=== PATIENT | male | born 1980 | race Two or more races ===

== ENCOUNTER 2016-12-30 12:04 | Inpatient (IN) | payer OTHER ==
[2016-12-30 13:59] VITALS: BMI 31.7
--- NOTE | 2016-12-30 19:39 | HP ---
Admission [facility] Chief Complaint: Seeking detox services. Allergies/Adverse Reactions: Allergies Allergy/AdvReac Type Severity Reaction Status Date / Time Penicillins Allergy Severe RASH Unverified 12/30/16 18:38 History of Present Illness: 36 y.o. man with a history of drug and alcohol dependence is here seeking detox. He completed detox at [facility] and was discharged today. He reports his longest period clean has been 4 years. - Ebola screening Have you traveled outside of the country in the last 21 days: No Have you had contact with anyone from an Ebola affected area: No Have you been sick,other than usual withdrawal symptoms: No - Review of Systems Constitutional: No Symptoms Reported EENT: reports: No Symptoms Reported Respiratory: reports: No Symptoms reported Cardiac: reports: No Symptoms Reported GI: reports: No Symptoms Reported : reports: No Symptoms Reported Musculoskeletal: reports: No Symptoms Reported Integumentary: reports: No Symptoms Reported Neuro: reports: No Symptoms reported Endocrine: reports: No Symptoms Reported Hematology: reports: No Symptoms Reported Psychiatric: reports: Orientated x3 Other Systems: Reviewed and Negative Patient History - Patient Medical History Hx Anemia: No Hx Asthma: No Hx Chronic Obstructive Pulmonary Disease (COPD): No Hx Cancer: No Hx Cardiac Disorders: No Hx Congestive Heart Failure: No Hx Hypertension: No Hx Hypercholesterolemia: No Hx Pacemaker: No HX Cerebrovascular Accident: No Hx Seizures: No Hx Dementia: No Hx Diabetes: No Hx Gastrointestinal Disorders: No Hx Liver Disease: No Hx Genitourinary Disorders: No Hx Sexually Transmitted Disorders: No Hx Renal Disease (ESRD): No Hx Thyroid Disease: No Hx Human Immunodeficiency Virus (HIV): No Hx Hepatitis C: No Hx Depression: Yes (Denies SI/HI) Hx Suicide Attempt: No Hx Bipolar Disorder: No Hx Schizophrenia: No - Patient Surgical History Past Surgical History: No Hx Neurologic Surgery: No Hx Cataract Extraction: No Hx Cardiac Surgery: No Hx Lung Surgery: No Hx Breast Surgery: No Hx Breast Biopsy: No Hx Abdominal Surgery: No Hx Appendectomy: No Hx Cholecystectomy: No Hx Genitourinary Surgery: No Hx Section: No Hx Orthopedic Surgery: No Anesthesia Reaction: No - PPD History Previous Implant?: Yes Documented Results: Negative w/o proof PPD to be Administered?: Yes - Reproductive History Patient is a Female of Child Bearing Age (11 -55 yrs old): No - Smoking Cessation Smoking history: Current every day smoker Have you smoked in the past 12 months: Yes Aproximately how many cigarettes per day: 3 Hx Chewing Tobacco Use: No Initiated information on smoking cessation: No 'Breaking Loose' booklet given: 12/30/16 - Substance & Tx. History Hx Alcohol Use: Yes Hx Substance Use: Yes Substance Use Type: Alcohol, Heroin Hx Substance Use Treatment: No (Detox @ [facility] d/ on 12/30/16. Last rehab was 8 years ago. ) - Substances Abused Alcohol Route: Oral Frequency: Daily Amount used: $20- beers- 6pk and lquor- 1 pint Age of first use: 17 Date of Last Use: 12/23/16 Heroin Route: Injection Frequency: Daily Amount used: 4bags- $40 Age of first use: 23 Date of Last Use: 12/25/16 PCP Route: Smoking Frequency: 1-2 times per week Amount used: $10 Age of first use: 25 Date of Last Use: 12/10/16 Family Disease History - Family Disease History Family Disease History: Other: Father (ETOH dependence ) Admission Physical Exam [facility] - Vital Signs Vital Signs: Vital Signs - 24 hr 12/30/16 13:57 Temperature 97.7 F Pulse Rate 110 H Respiratory 18 Rate Blood Pressure 152/75 - Physical General Appearance: Yes: No Apparent Distress, Nourished, Appropriately Dressed HEENTM: Yes: Hearing grossly Normal, Normal ENT Inspection, Normocephalic, Normal Voice Respiratory: Yes: Chest Non-Tender, Lungs Clear, Normal Breath Sounds, No Respiratory Distress, No Accessory Muscle Use Neck: Yes: No masses,lesions,Nodules, Trachea in good position Breast: Yes: Breast Exam Deferred Cardiology: Yes: Regular Rhythm Abdominal: Yes: Normal Bowel Sounds, Non Tender, Flat, Soft Genitourinary: Yes: Other (No complaints reported) Back: Yes: Normal Inspection Musculoskeletal: Yes: full range of Motion, Gait Steady, Pelvis Stable Extremities: Yes: Normal Capillary Refill, Normal Inspection, Normal Range of Motion, Non-Tender 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, Fully Oriented, Alert, Motor Strength 5/5, Normal Mood/Affect, Normal Response Integumentary: Yes: Normal Color, Dry, Warm Lymphatic: Yes: Within Normal Limits - Diagnostic (1) Alcohol dependence with uncomplicated withdrawal Current Visit: Yes Status: Chronic (2) Opioid dependence with withdrawal Current Visit: Yes Status: Chronic (3) Nicotine dependence Current Visit: Yes Status: Chronic (4) PCP dependence Current Visit: Yes Status: Chronic Cleared for Admission [facility] - Detox or Rehab [facility] Level of Care: Observation Bed Claeared for Rehab Admission: Yes [facility] Breath Alcohol Content Breath Alcohol Content: 0 Urine Drug Screen - Results Drug Screen Negative: No Urine Drug Screen Results: PCP-Phencyclidine, BZO-Benzodiazepines, MTD-Methadone
[2016-12-30] MEDS ORDERED: MENTHOL/PHENOL 1 EACH UD MM PRN (19:54)
[2016-12-30] MEDS ORDERED: IBUPROFEN 400 MG TABLET (FP) PO PRN (19:54)
[2016-12-30] MEDS ORDERED: guaiFENesin/D-METHORPHAN HB 10 ML UNIT-DOSE CUPS PO PRN (19:54)
[2016-12-30] MEDS ORDERED: hydrOXYzine PAMOATE 50 MG CAPSULE (FP) PO PRN (19:54)
[2016-12-30] MEDS ORDERED: LOPERAMIDE HCL 2 MG CAPSULE PO PRN (19:54)
[2016-12-30] MEDS ORDERED: ACETAMINOPHEN 325 MG TABLET (FP) PO PRN (19:54)
[2016-12-30] MEDS ORDERED: MAGNESIUM CITRATE 300 ML BOTTLE PO PRN (19:54)
[2016-12-30] MEDS ORDERED: MAG HYDROX/AL HYDROX/SIMETH 30 ML UNIT-DOSE CUP PO PRN (19:54)
[2016-12-30] MEDS ORDERED: MAGNESIUM HYDROX 2400MG/30ML ORAL SUSPENSION 30 ML CUP PO PRN (19:54)
[2016-12-30] MEDS ORDERED: P-EPHED 60MG/TRIPROLIDI 2.5MG TABLET PO PRN (19:54)
[2016-12-30] MEDS: diphenhydrAMINE HCL 50 MG CAPSULE PO PRN (21:58)
[2016-12-30] MEDS: THIAMINE HCL 100 MG TABLET (FP) PO SCH (21:58)
[2016-12-30 23:04] LABS: URINE APPEARANCE CLEAR; URINE BILIRUBIN NEGATIVE (NEGATIVE); URINE BLOOD NEGATIVE (NEGATIVE); URINE COLOR LTYELLOW; URINE GLUCOSE (UA) NEGATIVE (NEGATIVE); URINE KETONE NEGATIVE (NEGATIVE); URINE LEUK ESTERASE NEGATIVE (NEGATIVE); URINE NITRITE NEGATIVE (NEGATIVE); URINE PROTEIN NEGATIVE (NEGATIVE); URINE UROBILINOGEN NEGATIVE mg/dL (0.2-1.0)
--- NOTE | 2016-12-31 09:23 | EKG ---
Test Reason : Blood Pressure : / mmHG Vent. Rate : 095 BPM Atrial Rate : 095 BPM P-R Int : 142 ms QRS Dur : 088 ms QT Int : 358 ms P-R-T Axes : 061 065 041 degrees QTc Int : 449 ms NORMAL SINUS RHYTHM NORMAL ECG NO PREVIOUS ECGS AVAILABLE Confirmed by CATA GRACIA MD ([id number]) on 12/31/2016 9:23:11 AM Referred By: Confirmed By:CATA GRACIA MD
--- NOTE | 2016-12-31 09:27 | HP ---
Psychiatrist Admission - Data Date of interview: 12/31/16 Admission source: [facility] Identifying data: This is the first 5n inpatient rehabilitation admission for this 36 year old single male, father of 3 year old son, he is unemployed and residing in friends [place] apartment. Medical History: Reports no major medical issues, smokes cigarettes 3 a day. Psychiatric History: Patient reports first psychiatric treatment at age of 16, states he started to hear voices and feeling depressed following the of his mother, he was dmitted to [facility] for one [facility], treated with Depakote, Risperdal,Seroquel,Remeron he continued treatment in outpatient setting. States was diagnosed with Bipolar disorder. He stopped medications "because I was using ". States he hears voices on and off, last time heard them a months ago, states the voices(male and female) telling him "you gonna be a star". Patient reports he has difficutly sleeping , his mood is different during the day, it might be iiritable, depressed. Denies history of suicidal attempts. Physical/Sexual Abuse/Trauma History: Denies history of sexual, physical and verbal abuse. Additional Comment: Longest period of abstinence 4 years Vital Signs: Vital Signs - 24 hr 12/30/16 12/31/16 12/31/16 13:57 00:41 03:30 Temperature 97.7 F Pulse Rate 110 H Respiratory 18 18 18 Rate Blood Pressure 152/75 Allergies/Adverse Reactions: Allergies Allergy/AdvReac Type Severity Reaction Status Date / Time Penicillins Allergy Severe RASH Verified 12/30/16 20:52 Date of last physical exam: 12/30/16 Concur with the findings of this exam: Yes - Substance Abuse/Tx History Hx Alcohol Use: Yes (started at age of 18, reports daily use of beer, liquor) Hx Substance Use: Yes (PCP use 1-2 times a week for $10 ) Substance Use Type: Heroin (IV daily use 4-5 bags a day, started at age of 89) Hx Substance Use Treatment: Yes ([facility] rehab.) - Admission Criteria Previous failed treatment: Yes Poor recovery environment: Yes Comorbidities: Yes Lacks judgement: Yes Mental Status Exam - Mental Status Exam Alert and Oriented to: Time, Place, Person Cognitive Function: Good Patient Appearance: Well Groomed Mood: Depressed, Sad Affect: Appropriate, Mood Congruent, Constricted Patient Behavior: Appropriate, Cooperative Voice Loudness: Normal Thought Process: Goal Oriented Thought Disorder: Not Present Hallucinations: Denies Homicidal Ideation: Denies Insight/Judgement: Fair Sleep: Poorly, Difficulty falling asleep Appetite: Fair Muscle strength/Tone: Normal Gait/Station: Normal Psychiatric Findings - Problem List ([place] 1, 2,3) (1) Nicotine dependence Current Visit: Yes Status: Chronic (2) PCP dependence Current Visit: Yes Status: Chronic (3) Opioid dependence Current Visit: Yes Status: Acute (4) Alcohol dependence Current Visit: Yes Status: Acute (5) Bipolar 1 disorder, depressed Current Visit: Yes Status: Acute - Initial Treatment Plan Initial Treatment Plan: Will add Seroquel 50 mg po hs, monitor progress as needed.
[2016-12-31 10:16] LABS: MCH 27.4 pg (25.7-33.7); MCHC 33.3 g/dl (32.0-35.9); MEAN CELL VOLUME 82.4 fl (80-96); PLATELET COUNT 245 K/MM3 (134-434); RDW 13.6 % (11.9-15.9); WHITE BLOOD COUNT 8.9 K/mm3 (4.0-10.0)
[2016-12-31 10:22] LABS: ALBUMIN 3.5 g/dl (3.4-5.0); ANION GAP 8 (8-16); CALCIUM 8.6 mg/dL (8.5-10.1); CO2 29 mmol/L (21-32); GLUCOSE,RANDOM 93 mg/dL (74-106)
[2016-12-31] MEDS: PRENATAL VITAMINS W/ FOLIC ACID TABLET (FP) PO SCH (10:22)
[2016-12-31] MEDS: NICOTINE 21 MG/24 HOURS TOPICAL PATCH TD SCH (10:22)
[2016-12-31] MEDS: NICOTINE POLACRILEX 2 MG GUM BUC PRN (10:22)
[2016-12-31 10:27] LABS: ALK PHOS 90 U/L (45-117); BILIRUBIN,TOTAL 0.5 mg/dL (0.2-1.0); CREATININE 0.8 mg/dL (0.7-1.3); SGOT/AST 16 U/L (15-37); SGPT/ALT 21 U/L (12-78); TOT PROT 6.5 g/dl (6.4-8.2)
[2016-12-31] MEDS: THIAMINE HCL 100 MG TABLET (FP) PO SCH (23:16)
[2016-12-31] MEDS: QUEtiapine FUMARATE 50 MG TABLET PO SCH (23:16)
[2017-01-01] MEDS: PRENATAL VITAMINS W/ FOLIC ACID TABLET (FP) PO SCH (10:06)
[2017-01-01] MEDS: NICOTINE 21 MG/24 HOURS TOPICAL PATCH TD SCH (10:06)
[2017-01-01] MEDS: NICOTINE POLACRILEX 2 MG GUM BUC PRN (18:20)
[2017-01-01] MEDS: THIAMINE HCL 100 MG TABLET (FP) PO SCH (21:40)
[2017-01-01] MEDS: QUEtiapine FUMARATE 50 MG TABLET PO SCH (21:40)
[2017-01-02] MEDS: NICOTINE 21 MG/24 HOURS TOPICAL PATCH TD SCH (10:12)
[2017-01-02] MEDS: PRENATAL VITAMINS W/ FOLIC ACID TABLET (FP) PO SCH (10:12)
[2017-01-02] MEDS: THIAMINE HCL 100 MG TABLET (FP) PO SCH (21:40)
[2017-01-02] MEDS: QUEtiapine FUMARATE 50 MG TABLET PO SCH (21:40)
[2017-01-02] MEDS: NICOTINE POLACRILEX 2 MG GUM BUC PRN (21:41)
[2017-01-03] MEDS: NICOTINE POLACRILEX 2 MG GUM BUC PRN ×2 (06:23→10:14)
[2017-01-03] MEDS: PRENATAL VITAMINS W/ FOLIC ACID TABLET (FP) PO SCH (10:13)
[2017-01-03] MEDS: NICOTINE 21 MG/24 HOURS TOPICAL PATCH TD SCH (10:13)
[2017-01-03] MEDS: QUEtiapine FUMARATE 50 MG TABLET PO SCH (21:35)
[2017-01-03] MEDS: THIAMINE HCL 100 MG TABLET (FP) PO SCH (21:35)
[2017-01-04] MEDS: PRENATAL VITAMINS W/ FOLIC ACID TABLET (FP) PO SCH (10:58)
[2017-01-04] MEDS: NICOTINE POLACRILEX 2 MG GUM BUC PRN ×2 (10:59→21:50)
[2017-01-04] MEDS: NICOTINE 21 MG/24 HOURS TOPICAL PATCH TD SCH (10:59)
[2017-01-04] MEDS: QUEtiapine FUMARATE 50 MG TABLET PO SCH (21:49)
[2017-01-04] MEDS: THIAMINE HCL 100 MG TABLET (FP) PO SCH (21:49)
[2017-01-05] MEDS: PRENATAL VITAMINS W/ FOLIC ACID TABLET (FP) PO SCH (10:13)
[2017-01-05] MEDS: NICOTINE 21 MG/24 HOURS TOPICAL PATCH TD SCH (10:13)
[2017-01-05] MEDS: NICOTINE POLACRILEX 2 MG GUM BUC PRN ×2 (10:14→21:42)
[2017-01-05] MEDS: THIAMINE HCL 100 MG TABLET (FP) PO SCH (21:40)
[2017-01-05] MEDS: QUEtiapine FUMARATE 50 MG TABLET PO SCH (21:40)
--- NOTE | 2017-01-06 09:51 | PN ---
Psychiatric Progress Note Vital Signs: Vital Signs Period Temp Pulse Resp BP Sys/Gamez Pulse Ox Last 24 Hr 98.2 F 78 16-18 112/67 Current Medications: Active Medications Generic Name Dose Route Start Last Admin Trade Name Freq PRN Reason Stop Dose Admin Acetaminophen 650 mg 12/30/16 19:54 12/31/16 01:03 Tylenol - PO 650 mg Q4H PRN Administration PAIN Al Hydroxide/Mg Hydroxide 30 ml 12/30/16 19:54 Mylanta Oral Suspension - PO Q6H PRN DYSPEPSIA Diphenhydramine HCl 50 mg 12/30/16 19:54 12/30/16 21:58 Benadryl - PO 50 mg HSMR1 PRN Administration INSOMNIA Eucalyptus/Menthol/Phenol/Sorbitol 1 each 12/30/16 19:54 Cepastat Lozenge - MM Q4H PRN SORE THROAT Guaifenesin 10 ml 12/30/16 19:54 Robitussin Dm - PO Q6H PRN COUGH Hydroxyzine Pamoate 50 mg 12/30/16 19:54 Vistaril - PO Q4H PRN AGITATION Ibuprofen 400 mg 12/30/16 19:54 Motrin - PO Q6H PRN SEVERE PAIN Loperamide HCl 4 mg 12/30/16 19:54 Imodium - PO Q6H PRN DIARRHEA Magnesium Citrate 300 ml 12/30/16 19:54 Citroma - PO Q48H PRN CONSTIPATION Magnesium Hydroxide 30 ml 12/30/16 19:54 Milk Of Magnesia - PO DAILY PRN CONSTIPATION Nicotine 21 mg 12/31/16 10:00 01/05/17 10:13 Nicoderm Patch - TD Not Given DAILY MAKAYLA Nicotine Polacrilex 2 mg 12/30/16 19:54 01/05/17 21:42 Nicorette Gum - BUC 2 mg Q2H PRN Administration NICOTINE REPLACEMENT RX Multivit/Folic Acid/Iron 1 tab 12/31/16 10:00 01/05/17 10:13 Vitamins (Sjr) - PO 1 tab DAILY MAKAYLA Administration Pseudoephedrine/Triprolidine 1 combo 12/30/16 19:54 Actifed - PO TID PRN NASAL CONGESTION Quetiapine Fumarate 50 mg 12/31/16 22:00 01/05/17 21:40 Seroquel - PO 50 mg HS MAKAYLA Administration Thiamine HCl 100 mg 12/30/16 22:00 01/05/17 21:40 Vitamin B1 - PO 100 mg HS MAKAYLA Administration
[2017-01-06] MEDS: NICOTINE 21 MG/24 HOURS TOPICAL PATCH TD SCH (10:19)
[2017-01-06] MEDS: PRENATAL VITAMINS W/ FOLIC ACID TABLET (FP) PO SCH (10:19)
[2017-01-06] MEDS: QUEtiapine FUMARATE 50 MG TABLET PO SCH (21:39)
[2017-01-06] MEDS: THIAMINE HCL 100 MG TABLET (FP) PO SCH (21:39)
[2017-01-07] MEDS: NICOTINE 21 MG/24 HOURS TOPICAL PATCH TD SCH (09:59)
[2017-01-07] MEDS: PRENATAL VITAMINS W/ FOLIC ACID TABLET (FP) PO SCH (09:59)
[2017-01-07] MEDS: NICOTINE POLACRILEX 2 MG GUM BUC PRN (10:42)
[2017-01-07] MEDS: QUEtiapine FUMARATE 50 MG TABLET PO SCH (21:46)
[2017-01-07] MEDS: THIAMINE HCL 100 MG TABLET (FP) PO SCH (21:46)
[2017-01-08] MEDS: NICOTINE 21 MG/24 HOURS TOPICAL PATCH TD SCH (10:18)
[2017-01-08] MEDS: PRENATAL VITAMINS W/ FOLIC ACID TABLET (FP) PO SCH (10:18)
[2017-01-08] MEDS: THIAMINE HCL 100 MG TABLET (FP) PO SCH (22:32)
[2017-01-08] MEDS: QUEtiapine FUMARATE 50 MG TABLET PO SCH (22:32)
[2017-01-09] MEDS: PRENATAL VITAMINS W/ FOLIC ACID TABLET (FP) PO SCH (10:41)
[2017-01-09] MEDS: NICOTINE 21 MG/24 HOURS TOPICAL PATCH TD SCH (10:41)
[2017-01-09] MEDS: THIAMINE HCL 100 MG TABLET (FP) PO SCH (21:35)
[2017-01-09] MEDS: QUEtiapine FUMARATE 50 MG TABLET PO SCH (21:35)
[2017-01-10] MEDS: PRENATAL VITAMINS W/ FOLIC ACID TABLET (FP) PO SCH (10:24)
[2017-01-10] MEDS: NICOTINE 21 MG/24 HOURS TOPICAL PATCH TD SCH (10:24)
[2017-01-10] MEDS: THIAMINE HCL 100 MG TABLET (FP) PO SCH (21:33)
[2017-01-10] MEDS: QUEtiapine FUMARATE 50 MG TABLET PO SCH (21:33)
[2017-01-11] MEDS: NICOTINE 21 MG/24 HOURS TOPICAL PATCH TD SCH (10:27)
[2017-01-11] MEDS: PRENATAL VITAMINS W/ FOLIC ACID TABLET (FP) PO SCH (10:27)
[2017-01-11] MEDS: QUEtiapine FUMARATE 50 MG TABLET PO SCH (21:34)
[2017-01-11] MEDS: THIAMINE HCL 100 MG TABLET (FP) PO SCH (21:34)
[2017-01-12] MEDS: PRENATAL VITAMINS W/ FOLIC ACID TABLET (FP) PO SCH (10:49)
[2017-01-12] MEDS: NICOTINE 21 MG/24 HOURS TOPICAL PATCH TD SCH (10:50)
[2017-01-12] MEDS: QUEtiapine FUMARATE 50 MG TABLET PO SCH (21:44)
[2017-01-12] MEDS: THIAMINE HCL 100 MG TABLET (FP) PO SCH (21:44)
[2017-01-13] MEDS: NICOTINE 21 MG/24 HOURS TOPICAL PATCH TD SCH (10:47)
[2017-01-13] MEDS: PRENATAL VITAMINS W/ FOLIC ACID TABLET (FP) PO SCH (10:47)
[2017-01-13] MEDS: QUEtiapine FUMARATE 50 MG TABLET PO SCH (21:34)
[2017-01-13] MEDS: THIAMINE HCL 100 MG TABLET (FP) PO SCH (21:34)
[2017-01-14] MEDS: PRENATAL VITAMINS W/ FOLIC ACID TABLET (FP) PO SCH (10:01)
[2017-01-14] MEDS: NICOTINE 21 MG/24 HOURS TOPICAL PATCH TD SCH (10:01)
[2017-01-14] MEDS: QUEtiapine FUMARATE 50 MG TABLET PO SCH (21:37)
[2017-01-14] MEDS: THIAMINE HCL 100 MG TABLET (FP) PO SCH (21:37)
[2017-01-15] MEDS: NICOTINE 21 MG/24 HOURS TOPICAL PATCH TD SCH (10:28)
[2017-01-15] MEDS: PRENATAL VITAMINS W/ FOLIC ACID TABLET (FP) PO SCH (10:28)
[2017-01-15] MEDS: QUEtiapine FUMARATE 50 MG TABLET PO SCH (21:37)
[2017-01-15] MEDS: THIAMINE HCL 100 MG TABLET (FP) PO SCH (21:37)
[2017-01-16] MEDS: NICOTINE 21 MG/24 HOURS TOPICAL PATCH TD SCH (10:22)
[2017-01-16] MEDS: PRENATAL VITAMINS W/ FOLIC ACID TABLET (FP) PO SCH (10:22)
[2017-01-16] MEDS: QUEtiapine FUMARATE 50 MG TABLET PO SCH (21:33)
[2017-01-16] MEDS: NICOTINE POLACRILEX 2 MG GUM BUC PRN (21:34)
[2017-01-16] MEDS: THIAMINE HCL 100 MG TABLET (FP) PO SCH (21:34)
[2017-01-17] MEDS: NICOTINE 21 MG/24 HOURS TOPICAL PATCH TD SCH (10:37)
[2017-01-17] MEDS: PRENATAL VITAMINS W/ FOLIC ACID TABLET (FP) PO SCH (10:38)
[2017-01-17] MEDS: QUEtiapine FUMARATE 50 MG TABLET PO SCH (21:52)
[2017-01-17] MEDS: THIAMINE HCL 100 MG TABLET (FP) PO SCH (21:52)
[2017-01-17] MEDS: diphenhydrAMINE HCL 50 MG CAPSULE PO PRN (21:53)
[2017-01-18] MEDS: NICOTINE 21 MG/24 HOURS TOPICAL PATCH TD SCH (10:42)
[2017-01-18] MEDS: PRENATAL VITAMINS W/ FOLIC ACID TABLET (FP) PO SCH (10:42)
[2017-01-18] MEDS: QUEtiapine FUMARATE 50 MG TABLET PO SCH (21:52)
[2017-01-18] MEDS: THIAMINE HCL 100 MG TABLET (FP) PO SCH (21:52)
[2017-01-18] MEDS: diphenhydrAMINE HCL 50 MG CAPSULE PO PRN (21:53)
[2017-01-19] MEDS: PRENATAL VITAMINS W/ FOLIC ACID TABLET (FP) PO SCH (10:24)
[2017-01-19] MEDS: NICOTINE 21 MG/24 HOURS TOPICAL PATCH TD SCH (10:24)
[2017-01-19] MEDS: THIAMINE HCL 100 MG TABLET (FP) PO SCH (21:50)
[2017-01-19] MEDS: QUEtiapine FUMARATE 50 MG TABLET PO SCH (21:50)
[2017-01-20] MEDS: PRENATAL VITAMINS W/ FOLIC ACID TABLET (FP) PO SCH (10:57)
[2017-01-20] MEDS: NICOTINE 21 MG/24 HOURS TOPICAL PATCH TD SCH (10:57)
[2017-01-20] MEDS: QUEtiapine FUMARATE 50 MG TABLET PO SCH (21:26)
[2017-01-20] MEDS: THIAMINE HCL 100 MG TABLET (FP) PO SCH (21:26)
[2017-01-21] MEDS: NICOTINE 21 MG/24 HOURS TOPICAL PATCH TD SCH (10:47)
[2017-01-21] MEDS: PRENATAL VITAMINS W/ FOLIC ACID TABLET (FP) PO SCH (10:47)
--- NOTE | 2017-01-21 12:10 | PN ---
[facility] Progress Note Note: patient has history of hepatitis c treated with harvoni 8 months ago by his pmd, advise follow up with his pmd after discharge
[2017-01-21] MEDS: QUEtiapine FUMARATE 50 MG TABLET PO SCH (21:38)
[2017-01-21] MEDS: THIAMINE HCL 100 MG TABLET (FP) PO SCH (21:39)
[2017-01-22] MEDS: PRENATAL VITAMINS W/ FOLIC ACID TABLET (FP) PO SCH (10:39)
[2017-01-22] MEDS: NICOTINE 21 MG/24 HOURS TOPICAL PATCH TD SCH (10:39)
[2017-01-22] MEDS: diphenhydrAMINE HCL 50 MG CAPSULE PO PRN (21:24)
[2017-01-22] MEDS: QUEtiapine FUMARATE 50 MG TABLET PO SCH (21:24)
[2017-01-22] MEDS: THIAMINE HCL 100 MG TABLET (FP) PO SCH (21:24)
[2017-01-23] MEDS: NICOTINE 21 MG/24 HOURS TOPICAL PATCH TD SCH (10:47)
[2017-01-23] MEDS: PRENATAL VITAMINS W/ FOLIC ACID TABLET (FP) PO SCH (10:47)
[2017-01-23] MEDS: QUEtiapine FUMARATE 50 MG TABLET PO SCH (21:26)
[2017-01-23] MEDS: diphenhydrAMINE HCL 50 MG CAPSULE PO PRN (21:26)
[2017-01-23] MEDS: THIAMINE HCL 100 MG TABLET (FP) PO SCH (21:26)
[2017-01-24 07:12] VITALS: BP 113/76; PULSE 90; TEMP 98.1
[2017-01-24] MEDS: NICOTINE 21 MG/24 HOURS TOPICAL PATCH TD SCH (10:38)
[2017-01-24] MEDS: PRENATAL VITAMINS W/ FOLIC ACID TABLET (FP) PO SCH (10:39)
[2017-01-24] MEDS: diphenhydrAMINE HCL 50 MG CAPSULE PO PRN (21:50)
[2017-01-24] MEDS: THIAMINE HCL 100 MG TABLET (FP) PO SCH (21:50)
[2017-01-24] MEDS: QUEtiapine FUMARATE 50 MG TABLET PO SCH (21:50)
--- NOTE | 2017-01-25 09:33 | PN ---
Psychiatric Progress Note Vital Signs: Vital Signs Period Temp Pulse Resp BP Sys/Gamez Pulse Ox Last 24 Hr 16-16 Date of Session: 01/25/17 Chief Complaint:: discharge visit HPI: Patient has addressed alcohol, opioid, PCP, nicotine dependence comorbid Bipolar disorder. ROS: WNL Current Medications: Active Medications Generic Name Dose Route Start Last Admin Trade Name Freq PRN Reason Stop Dose Admin Acetaminophen 650 mg 12/30/16 19:54 12/31/16 01:03 Tylenol - PO 650 mg Q4H PRN Administration PAIN Al Hydroxide/Mg Hydroxide 30 ml 12/30/16 19:54 Mylanta Oral Suspension - PO Q6H PRN DYSPEPSIA Diphenhydramine HCl 50 mg 12/30/16 19:54 01/24/17 21:50 Benadryl - PO 50 mg HSMR1 PRN Administration INSOMNIA Eucalyptus/Menthol/Phenol/Sorbitol 1 each 12/30/16 19:54 Cepastat Lozenge - MM Q4H PRN SORE THROAT Guaifenesin 10 ml 12/30/16 19:54 Robitussin Dm - PO Q6H PRN COUGH Hydroxyzine Pamoate 50 mg 12/30/16 19:54 Vistaril - PO Q4H PRN AGITATION Ibuprofen 400 mg 12/30/16 19:54 Motrin - PO Q6H PRN SEVERE PAIN Loperamide HCl 4 mg 12/30/16 19:54 Imodium - PO Q6H PRN DIARRHEA Magnesium Citrate 300 ml 12/30/16 19:54 Citroma - PO Q48H PRN CONSTIPATION Magnesium Hydroxide 30 ml 12/30/16 19:54 Milk Of Magnesia - PO DAILY PRN CONSTIPATION Nicotine 21 mg 12/31/16 10:00 01/24/17 10:38 Nicoderm Patch - TD Not Given DAILY MAKAYLA Nicotine Polacrilex 2 mg 12/30/16 19:54 01/16/17 21:34 Nicorette Gum - BUC 2 mg Q2H PRN Administration NICOTINE REPLACEMENT RX Multivit/Folic Acid/Iron 1 tab 12/31/16 10:00 01/24/17 10:39 Vitamins (Sjr) - PO Not Given DAILY MAKAYLA Pseudoephedrine/Triprolidine 1 combo 12/30/16 19:54 Actifed - PO TID PRN NASAL CONGESTION Quetiapine Fumarate 50 mg 12/31/16 22:00 01/24/17 21:50 Seroquel - PO 50 mg HS MAKAYLA Administration Thiamine HCl 100 mg 12/30/16 22:00 01/24/17 21:50 Vitamin B1 - PO 100 mg HS MAKAYLA Administration Current Side Effect: No Lab tests ordered: No Lab tests reviewed: Yes Provider note:: Patient has compelted today his treatment and met his identified goals, will contintue address his issiues at [facility]. He focused on imprtance of changing relapses, behavior for the utilization of supports to prevent, he verbalized understanding the negative consequences of his addiction and motivated to continue maintain abstinence. Seroquel well tolerated, no side-effects reported, scripts provided for 30 days, patient is stable for discharge today. Total face to face time:: 15 Mental Status Exam - Mental Status Exam Alert and Oriented to: Time, Place, Person Cognitive Function: Grossly Intact Patient Appearance: Well Groomed Mood: Hopeful Affect: Appropriate, Inappropriate, Mood Congruent Patient Behavior: Appropriate, Cooperative Speech Pattern: Clear, Appropriate Voice Loudness: Normal Thought Process: Intact, Goal Oriented Thought Disorder: Not Present Hallucinations: Denies Suicidal Ideation: Denies Homicidal Ideation: Denies Insight/Judgement: Fair Sleep: Well Appetite: Good Muscle strength/Tone: Normal Gait/Station: Normal Psychiatric Treatment Plan - Problem List (1) Nicotine dependence Current Visit: Yes (2) PCP dependence Current Visit: Yes (3) Opioid dependence Current Visit: Yes (4) Alcohol dependence Current Visit: Yes (5) Bipolar 1 disorder, depressed Current Visit: Yes
[2017-01-25] MEDS: NICOTINE 21 MG/24 HOURS TOPICAL PATCH TD SCH (10:09)
[2017-01-25] MEDS: PRENATAL VITAMINS W/ FOLIC ACID TABLET (FP) PO SCH (10:09)
== END 2017-01-25 10:00 | disposition home or self-care (01) | DRG 772 ==
LOC: YASAS 12:04 → Y5N 17:39
PROVIDERS: ADMIT Psychiatry & Neurology Psychiatry; ATTEND Psychiatry & Neurology Psychiatry
PROC: HZ42ZZZ Group Counseling for Substance Abuse Treatment, Cognitive-Behavioral (ICD-10-PCS; principal; 2017-01-25)
DX: F11.20 Opioid dependence, uncomplicated (principal); F10.20 Alcohol dependence, uncomplicated; F16.20 Hallucinogen dependence, uncomplicated; F17.210 Nicotine dependence, cigarettes, uncomplicated; F31.89 Other bipolar disorder
CPT/HCPCS: 36415; 80053; 81003; 85027; 86593; 86803; 93005; 93010

== ENCOUNTER 2018-03-05 08:58 | Inpatient (IN) | payer OTHER ==
[2018-03-05 09:16] VITALS: BMI 27.8
--- NOTE | 2018-03-05 09:27 | HP ---
CIWA Score - CIWA Score Nausea/Vomitin Muscle Tremors: 3 Anxiety: 2 Agitation: 2 Paroxysmal Sweats: 1-Minimal Palms Moist Orientation: 0-Oriented Tacttile Disturbances: 1-Very Mild Itch/Numbness Auditory Disturbances: 1-Very Mild Visual Disturbances: 0-None Headache: 2-Mild CIWA-Ar Total Score: 14 Admission ROS [facility] - HPI Chief Complaint: i need help to stop drinking alcohol,cocaine,pcp,heroin abused,mmtp 50 mgs/day last medicated today Allergies/Adverse Reactions: Allergies Allergy/AdvReac Type Severity Reaction Status Date / Time Penicillins Allergy Severe RASH Verified 03/05/18 09:15 History of Present Illness: this 37 years old male with alcohol ,cocaine,marijuana ,heroin dependence,mmtp 50 mgs/day,last medicated today hepatitis c teated 3 years ago bipolar disorder on medication nicotine dependence multiple admissions in the past but keep relapsing longest period of sobriety 5 years weight loss , Exam Limitations: No Limitations - Ebola screening Have you traveled outside of the country in the last 21 days: No - Review of Systems Constitutional: Loss of Appetite, Malaise, Night Sweats, Changes in sleep, Weakness, Unintentional Wgt. Loss EENT: reports: Nose Congestion Respiratory: reports: No Symptoms reported Cardiac: reports: No Symptoms Reported GI: reports: Nausea, Vomiting, Abdominal cramping : reports: No Symptoms Reported Musculoskeletal: reports: Back Pain, Muscle Pain Neuro: reports: Headache, Tremors Endocrine: reports: No Symptoms Reported Hematology: reports: No Symptoms Reported Psychiatric: reports: No Sypmtoms Reported (bipolar disorder), Judgement Intact , Mood/Affect Appropiate, Orientated x3 Patient History - Patient Medical History Hx Anemia: No Hx Asthma: No Hx Chronic Obstructive Pulmonary Disease (COPD): No Hx Cancer: No Hx Cardiac Disorders: No Hx Congestive Heart Failure: No Hx Hypertension: No Hx Hypercholesterolemia: No Hx Pacemaker: No HX Cerebrovascular Accident: No Hx Seizures: No Hx Dementia: No Hx Diabetes: No Hx Gastrointestinal Disorders: No Hx Liver Disease: No Hx Genitourinary Disorders: No Hx Sexually Transmitted Disorders: No Hx Renal Disease (ESRD): No Hx Thyroid Disease: No Hx Human Immunodeficiency Virus (HIV): No (03/02/18 negative) Hx Hepatitis C: Yes (treated 3 years ago) Hx Depression: Yes (Denies SI/HI) Hx Suicide Attempt: No Hx Bipolar Disorder: Yes Hx Schizophrenia: No Other Medical History: no suicidal,no homicidal - Patient Surgical History Past Surgical History: No Hx Neurologic Surgery: No Hx Cataract Extraction: No Hx Cardiac Surgery: No Hx Lung Surgery: No Hx Breast Surgery: No Hx Breast Biopsy: No Hx Abdominal Surgery: Yes (right inguinal hernia repair at age 29 years) Hx Appendectomy: No Hx Cholecystectomy: No Hx Genitourinary Surgery: No Hx Section: No Hx Orthopedic Surgery: No Anesthesia Reaction: No - PPD History Previous Implant?: Yes Documented Results: Negative w/o proof Implanted On [facility] Admission?: Yes Date: 01/01/17 Results: 0 mm PPD to be Administered?: Yes - Smoking Cessation Smoking history: Current every day smoker Have you smoked in the past 12 months: Yes Aproximately how many cigarettes per day: 3 Hx Chewing Tobacco Use: No Initiated information on smoking cessation: Yes 'Breaking Loose' booklet given: 03/05/18 - Substance & Tx. History Hx Alcohol Use: Yes Substance Use Type: Alcohol, Cocaine, Heroin, Marijuana Hx Substance Use Treatment: Yes ([facility] rehab12/30/16 to 01/23/17) - Substances Abused Alcohol Route: Oral Frequency: Daily Amount used: 5 40 OUNCES OF BEER Age of first use: 16 Date of Last Use: 03/04/18 Heroin Route: Inhalation Frequency: 1-2 times per week Amount used: 2-3 BAGS WHEN USED Age of first use: 26 Date of Last Use: 03/03/18 Marijuana/Hashish Route: Smoking Frequency: 1-3 times last 30 days Amount used: 1 BLUNT Age of first use: 16 Date of Last Use: 03/04/18 Cocaine Route: Inhalation Frequency: 1-2 times per week Amount used: 2 BAGS Age of first use: 28 Date of Last Use: 03/03/18 PCP Route: Smoking Frequency: 1-2 times per week Amount used: $30 Age of first use: 23 Date of Last Use: 03/04/18 Family Disease History - Family Disease History Family Disease History: Other: Father (ETOH dependence ) Admission Physical Exam [facility] - Vital Signs Vital Signs: Vital Signs Temperature 99.2 F 03/05/18 09:10 Pulse Rate 83 03/05/18 09:10 Respiratory Rate 18 03/05/18 09:10 Blood Pressure 128/82 03/05/18 09:10 O2 Sat by Pulse Oximetry (%) - Physical General Appearance: Yes: Moderate Distress, Tremorous, Irritable, Sweating, Anxious HEENTM: Yes: MARSHA, Pharynx Normal, Tm's normal Respiratory: Yes: Lungs Clear, Normal Breath Sounds, No Respiratory Distress Neck: Yes: Within Normal Limits, Supple, Trachea in good position Breast: Yes: Within Normal Limits Cardiology: Yes: Within Normal Limits, Regular Rhythm, Regular Rate, S1, S2 Abdominal: Yes: Within Normal Limits, Normal Bowel Sounds, Non Tender, Flat, Soft, Surgical Scar Genitourinary: Yes: Within Normal Limits Back: Yes: Muscle Spasm Musculoskeletal: Yes: full range of Motion, Back pain, Muscle Pain Extremities: Yes: Tremors 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 - Detox or Rehab [facility] Level of Care: Medically Managed Detox Regimen/Protocol: Librium S Breath Alcohol Content Breath Alcohol Content: 0
[2018-03-05] MEDS ORDERED: chlordiazePOXIDE HCL 25 MG CAPSULE PO PRN (09:42)
[2018-03-05] MEDS ORDERED: P-EPHED 60MG/TRIPROLIDI 2.5MG TABLET PO PRN (09:42)
[2018-03-05] MEDS ORDERED: MENTHOL/PHENOL 1 EACH UD MM PRN (09:42)
[2018-03-05] MEDS ORDERED: ACETAMINOPHEN 325 MG TABLET (FP) PO PRN (09:42)
[2018-03-05] MEDS ORDERED: MAGNESIUM CITRATE 300 ML BOTTLE PO PRN (09:42)
[2018-03-05] MEDS ORDERED: MAGNESIUM HYDROX 2400MG/30ML ORAL SUSPENSION 30 ML CUP PO PRN (09:42)
[2018-03-05] MEDS ORDERED: guaiFENesin/D-METHORPHAN HB 10 ML UNIT-DOSE CUPS PO PRN (09:42)
[2018-03-05] MEDS ORDERED: MAG HYDROX/AL HYDROX/SIMETH 30 ML UNIT-DOSE CUP PO PRN (09:42)
[2018-03-05] MEDS ORDERED: IBUPROFEN 400 MG TABLET (FP) PO PRN (09:42)
[2018-03-05] MEDS ORDERED: hydrOXYzine PAMOATE 25 MG CAPSULE (FP) PO PRN (09:42)
[2018-03-05] MEDS: chlordiazePOXIDE HCL 25 MG CAPSULE PO SCH ×3 (10:47→22:33)
[2018-03-05] MEDS: PRENATAL VITAMINS W/ FOLIC ACID TABLET (FP) PO SCH (10:51)
[2018-03-05] MEDS: NICOTINE 14 MG/24 HOURS TOPICAL PATCH TD SCH (10:51)
[2018-03-05] MEDS: NICOTINE POLACRILEX 4 MG GUM BUC PRN ×4 (11:40→23:19)
[2018-03-05 17:39] LABS: URINE APPEARANCE CLEAR; URINE BILIRUBIN NEGATIVE (<2.0 mg/dL); URINE COLOR DKYELLOW; URINE GLUCOSE (UA) NEGATIVE (NEGATIVE); URINE KETONE NEGATIVE (NEGATIVE); URINE LEUK ESTERASE TRACE (NEGATIVE); URINE NITRITE NEGATIVE (NEGATIVE); URINE PROTEIN NEGATIVE (NEGATIVE); URINE UROBILINOGEN 4.0 E.U/dl mg/dL (0.2-1.0)
[2018-03-05 17:42] LABS: EPI CELLS RARE /HPF (FEW); URINE MUCUS FEW
[2018-03-05] MEDS ORDERED: MELATONIN 5 MG TABLETS PO PRN (22:00)
[2018-03-05] MEDS: THIAMINE HCL 100 MG TABLET (FP) PO SCH (22:33)
[2018-03-06] MEDS: NICOTINE POLACRILEX 4 MG GUM BUC PRN ×4 (02:42→19:54)
[2018-03-06] MEDS: chlordiazePOXIDE HCL 25 MG CAPSULE PO SCH ×4 (05:15→22:11)
--- NOTE | 2018-03-06 06:11 | EKG ---
Test Reason : Blood Pressure : / mmHG Vent. Rate : 075 BPM Atrial Rate : 075 BPM P-R Int : 124 ms QRS Dur : 088 ms QT Int : 386 ms P-R-T Axes : 065 070 063 degrees QTc Int : 431 ms NORMAL SINUS RHYTHM WITH SINUS ARRHYTHMIA NORMAL ECG WHEN COMPARED WITH ECG OF 30-DEC-2016 21:10, NO SIGNIFICANT CHANGE WAS FOUND Confirmed by KAYLEE NEWELL MD ([id number]) on 03/06/2018 6:11:11 AM Referred By: Chanelle Esteves Confirmed By:KAYLEE NEWELL MD
[2018-03-06] MEDS ORDERED: METHADONE HCL 10 MG TABLET PO ONE (08:25)
[2018-03-06] MEDS ORDERED: METHADONE 40 MG, METHADONE 10 MG PO ONE (08:50)
[2018-03-06] MEDS ORDERED: METHADONE HCL 40 MG DISPERSABLE TABLET ONE (08:51)
[2018-03-06] MEDS ORDERED: METHADONE HCL 10 MG TABLET ONE (08:52)
--- NOTE | 2018-03-06 09:06 | CONSULT ---
[facility] Psychiatric Consult - Data Date of interview: 03/06/18 Admission source: [facility] Identifying data: Patient is a 37 year old single male, unemployed (denies financial assistance), and is currently homeless. This is one of multiple admissions for patient. Pt. admitted to for alcohol and cocaine dependence. Substance Abuse History: Smoking Cessation. Smoking history: Current every day smoker. Have you smoked in the past 12 months: Yes. Aproximately how many cigarettes per day: 3. Hx Chewing Tobacco Use: No. Initiated information on smoking cessation: Yes. 'Breaking Loose' booklet given: 03/05/18. - Substance & Tx. History. Hx Alcohol Use: Yes. Substance Use Type: Alcohol, Cocaine, Heroin, Marijuana. Hx Substance Use Treatment: Yes ([facility] rehab12/30/16 to 01/23). - Substances Abused. Alcohol. Route: Oral. Frequency: Daily. Amount used: 5 40 OUNCES OF BEER. Age of first use: 16. Date of Last Use: . Heroin. Route: Inhalation. Frequency: 1-2 times per week. Amount used: 2-3 BAGS WHEN USED. Age of first use: 26. Date of Last Use: 03/03/18. * * Marijuana/Hashish. Route: Smoking. Frequency: 1-3 times last 30 days. Amount used: 1 BLUNT. Age of first use: 16. Date of Last Use: 03/04/18. Cocaine. Route: Inhalation. Frequency: 1-2 times per week. Amount used: 2 BAGS. Age of first use: 28. Date of Last Use: 03/03/18. PCP. Route: Smoking. Frequency: 1-2 times per week. Amount used: $30. Age of first use: 23. Date of Last Use: 03/04/18 Medical History: right inguinal hernia repair Psychiatric History: Patient is not a reliable historian as evidence of the information he's has given to previous psychiatrist. Patient reports one psychiatric hospitalization at [facility] several weeks ago. He reports a diagnosis of bipolar disorder and states he is prescribed seroquel 100mg qhs. He denies h/o outpatient psychiatric care. As per chart patient was admitted to on December 31, [address] was [address] Dr. Sutton. He reported that his first psychiatric treatment was at the age of 16 due to auditory hallucinations and feeling depressed. He was admitted to [facility] and was treated with depakote, risperdal, seroquel and rememron. He contined treatment at an outpatient clinic but eventually stopped taking medications due to subtance abuse. Currently, patient presents as restless and anxious. Pharmacy claims reviewed and note a prescription of seroquel 200mg BID was sent to patient's pharmacy on 01/30/18 and trileptal 600mg daily was sent on 01/27/18. Patient denies h/o suicide attempt. Physical/Sexual Abuse/Trauma History: denies. Mental Status Exam - Mental Status Exam Alert and Oriented to: Time, Place, Person Cognitive Function: Good Patient Appearance: Well Groomed Mood: Withdrawn, Anxious, Irritable (Slightly irritable) Affect: Mood Congruent Patient Behavior: Restless Speech Pattern: Appropriate Voice Loudness: Normal Thought Process: Intact, Goal Oriented Thought Disorder: Not Present Hallucinations: Denies Suicidal Ideation: Denies Homicidal Ideation: Denies Insight/Judgement: Poor Sleep: Poorly Appetite: Fair Muscle strength/Tone: Normal Gait/Station: Normal Psychiatric Findings - Problem List ([place] 1, 2,3) (1) Bipolar disorder Current Visit: Yes Status: Chronic (2) Alcohol dependence Current Visit: Yes Status: Acute Qualifiers: Substance use status: uncomplicated Qualified Code(s): F10.20 - Alcohol dependence, uncomplicated (3) Cannabis dependence Current Visit: Yes Status: Acute (4) Cocaine dependence Current Visit: Yes Status: Acute Qualifiers: Substance use status: uncomplicated Qualified Code(s): F14.20 - Cocaine dependence, uncomplicated (5) PCP dependence Current Visit: Yes Status: Chronic (6) Methadone maintenance therapy patient Current Visit: Yes Status: Chronic (7) Heroin abuse Current Visit: Yes Status: Acute - Initial Treatment Plan Initial Treatment Plan: Psychoeducation provided. Detoxification in progress. Will order Seroquel 50mg BID. Benefits and side effects discussed. Verbal consent given.
--- NOTE | 2018-03-06 09:13 | PN ---
S CIWA - CIWA Score Nausea/Vomitin-No Nausea/No Vomiting Muscle Tremors: 4-Moderate,w/Arms Extend Anxiety: 3 Agitation: 3 Paroxysmal Sweats: 3 Orientation: 0-Oriented Tacttile Disturbances: 0-None Auditory Disturbances: 0-None Visual Disturbances: 0-None Headache: 0-None Present CIWA-Ar Total Score: 13 [facility] Progress Note (SOAP) Subjective: sweats shakes interrupted sleep agitation anxiety restless Objective: 03/06/18 09:12 Vital Signs Temperature 97.3 F L 03/06/18 06:00 Pulse Rate 101 H 03/06/18 06:00 Respiratory Rate 18 03/06/18 06:00 Blood Pressure 114/74 03/06/18 06:00 O2 Sat by Pulse Oximetry (%) Laboratory Tests 03/05/18 10:30 Urine Color Dkyellow Urine Appearance Clear Urine pH 7.0 Ur Specific [place] 1.024 Urine Protein Negative Urine Glucose (UA) Negative Urine Ketones Negative Urine Blood Negative Urine Nitrite Negative Urine Bilirubin Negative Urine Urobilinogen 4.0 e.u/dl Ur Leukocyte Esterase Trace Urine WBC (Auto) 1 Urine RBC (Auto) 2 Ur Epithelial Cells Rare Urine Mucus Few rest of labs pending repeat u/a aaox3 ambulating no acute distress Assessment: 03/06/18 09:13 withdrawal sx Plan: continue detox increase fluids f/u pending labs
[2018-03-06 10:20] LABS: HEMOGLOBIN 14.1 GM/dL (11.7-16.9); MCHC 32.7 g/dl (32.0-35.9); MEAN CELL VOLUME 85.7 fl (80-96); MEAN PLT VOLUME 8.8 fl (7.5-11.1); PLATELET COUNT 233 K/MM3 (134-434); RBC 5.02 M/mm3 (4.00-5.60); RDW 14.3 % (11.9-15.9); WHITE BLOOD COUNT 11.1 K/mm3 (4.0-10.0)
[2018-03-06] MEDS: PRENATAL VITAMINS W/ FOLIC ACID TABLET (FP) PO SCH (10:32)
[2018-03-06] MEDS: QUEtiapine FUMARATE 50 MG TABLET PO SCH ×2 (10:33→22:11)
[2018-03-06] MEDS: NICOTINE 14 MG/24 HOURS TOPICAL PATCH TD SCH (10:33)
[2018-03-06 10:34] LABS: ALBUMIN 3.4 g/dl (3.4-5.0); ALK PHOS 112 U/L (45-117); ANION GAP 9 MMOL/L (8-16); BILIRUBIN,TOTAL 0.2 mg/dL (0.2-1); BLOOD UREA NITROGEN 23 mg/dL (7-18); CALCIUM 8.8 mg/dL (8.5-10.1); CHLORIDE 106 mmol/L (98-107); CO2 26 mmol/L (21-32); CREATININE 0.9 mg/dL (0.55-1.3); GLUCOSE,RANDOM 86 mg/dL (74-106); POTASSIUM 4.2 mmol/L (3.5-5.1); SGOT/AST 13 U/L (15-37); SGPT/ALT 22 U/L (13-61); SODIUM 142 mmol/L (136-145); TOT PROT 6.6 g/dl (6.4-8.2)
[2018-03-06] MEDS: LOPERAMIDE HCL 2 MG CAPSULE PO PRN (21:00)
[2018-03-06] MEDS: THIAMINE HCL 100 MG TABLET (FP) PO SCH (22:11)
[2018-03-07] MEDS ORDERED: METHADONE HCL 40 MG DISPERSABLE TABLET ONE (04:50)
[2018-03-07] MEDS ORDERED: METHADONE HCL 10 MG TABLET ONE (04:51)
[2018-03-07] MEDS: METHADONE 40 MG, METHADONE 10 MG PO SCH (05:39)
[2018-03-07] MEDS: chlordiazePOXIDE HCL 25 MG CAPSULE PO SCH (05:39)
[2018-03-07] MEDS: LOPERAMIDE HCL 2 MG CAPSULE PO PRN (05:42)
[2018-03-07] MEDS ORDERED: METHADONE HCL 40 MG DISPERSABLE TABLET PO SCH (06:00)
[2018-03-07] MEDS ORDERED: LACTULOSE 20 GM/30 ML UDC (FOR ORAL USE ONLY) PO ONE (09:15)
--- NOTE | 2018-03-07 09:38 | PN ---
[facility] CIWA - CIWA Score Nausea/Vomitin-No Nausea/No Vomiting Muscle Tremors: 3 Anxiety: 2 Agitation: 3 Paroxysmal Sweats: 2 Orientation: 0-Oriented Tacttile Disturbances: 0-None Auditory Disturbances: 0-None Visual Disturbances: 0-None Headache: 0-None Present CIWA-Ar Total Score: 10 S Progress Note (SOAP) Subjective: agitation anxiety sweats irritable Objective: 03/07/18 09:35 Vital Signs Temperature 97.9 F 03/07/18 09:19 Pulse Rate 105 H 03/07/18 09:19 Respiratory Rate 18 03/07/18 09:19 Blood Pressure 134/74 03/07/18 09:19 O2 Sat by Pulse Oximetry (%) Laboratory Tests 03/05/18 03/06/18 03/06/18 10:30 07:30 07:30 WBC 11.1 H RBC 5.02 Hgb 14.1 Hct 43.0 MCV 85.7 MCH 28.0 MCHC 32.7 RDW 14.3 Plt Count 233 MPV 8.8 Sodium 142 Potassium 4.2 Chloride 106 Carbon Dioxide 26 Anion Gap 9 BUN 23 H Creatinine 0.9 Creat Clearance w eGFR > 60 Random Glucose 86 Calcium 8.8 Total Bilirubin 0.2 AST 13 L ALT 22 Alkaline Phosphatase 112 Ammonia Total Protein 6.6 Albumin 3.4 Urine Color Dkyellow Urine Appearance Clear Urine pH 7.0 Ur Specific [place] 1.024 Urine Protein Negative Urine Glucose (UA) Negative Urine Ketones Negative Urine Blood Negative Urine Nitrite Negative Urine Bilirubin Negative Urine Urobilinogen 4.0 e.u/dl Ur Leukocyte Esterase Trace Urine WBC (Auto) 1 Urine RBC (Auto) 2 Ur Epithelial Cells Rare Urine Mucus Few RPR Titer 03/06/18 03/06/18 07:30 12:40 WBC RBC Hgb Hct MCV MCH MCHC RDW Plt Count MPV Sodium Potassium Chloride Carbon Dioxide Anion Gap BUN Creatinine Creat Clearance w eGFR Random Glucose Calcium Total Bilirubin AST ALT Alkaline Phosphatase Ammonia 46.20 H Total Protein Albumin Urine Color Urine Appearance Urine pH Ur Specific [place] Urine Protein Urine Glucose (UA) Urine Ketones Urine Blood Urine Nitrite Urine Bilirubin Urine Urobilinogen Ur Leukocyte Esterase Urine WBC (Auto) Urine RBC (Auto) Ur Epithelial Cells Urine Mucus RPR Titer Nonreactive elevated ammonia level laculose 20gm first dose now and continue tid repeat labs aaox3 ambulating Assessment: 03/07/18 09:37 withdrawal sx Plan: continue detox increase fluids repeat labs.
[2018-03-07] MEDS: NICOTINE POLACRILEX 4 MG GUM BUC PRN ×4 (09:43→19:52)
[2018-03-07] MEDS: NICOTINE 14 MG/24 HOURS TOPICAL PATCH TD SCH (10:20)
[2018-03-07] MEDS: QUEtiapine FUMARATE 50 MG TABLET PO SCH ×2 (10:20→22:14)
[2018-03-07] MEDS: chlordiazePOXIDE 5 MG CAPSULE PO SCH ×3 (10:20→22:13)
[2018-03-07] MEDS: PRENATAL VITAMINS W/ FOLIC ACID TABLET (FP) PO SCH (10:20)
[2018-03-07] MEDS: LACTULOSE 20 GM/30 ML UDC (FOR ORAL USE ONLY) PO SCH ×2 (15:16→22:13)
[2018-03-07] MEDS: THIAMINE HCL 100 MG TABLET (FP) PO SCH (22:14)
[2018-03-08] MEDS ORDERED: METHADONE HCL 40 MG DISPERSABLE TABLET ONE (04:27)
[2018-03-08] MEDS ORDERED: METHADONE HCL 10 MG TABLET ONE (04:27)
[2018-03-08] MEDS: chlordiazePOXIDE 5 MG CAPSULE PO SCH (05:12)
[2018-03-08] MEDS: LACTULOSE 20 GM/30 ML UDC (FOR ORAL USE ONLY) PO SCH ×5 (05:12→22:48)
[2018-03-08] MEDS: METHADONE 40 MG, METHADONE 10 MG PO SCH (05:13)
--- NOTE | 2018-03-08 09:33 | PN ---
[facility] Progress Note (SOAP) Subjective: sweats irritable agitation Objective: 03/08/18 09:33 Vital Signs Temperature 98.8 F 03/08/18 09:07 Pulse Rate 97 H 03/08/18 09:07 Respiratory Rate 16 03/08/18 09:07 Blood Pressure 124/76 03/08/18 09:07 O2 Sat by Pulse Oximetry (%) Laboratory Tests 03/05/18 03/06/18 03/06/18 10:30 07:30 07:30 WBC 11.1 H RBC 5.02 Hgb 14.1 Hct 43.0 MCV 85.7 MCH 28.0 MCHC 32.7 RDW 14.3 Plt Count 233 MPV 8.8 Sodium 142 Potassium 4.2 Chloride 106 Carbon Dioxide 26 Anion Gap 9 BUN 23 H Creatinine 0.9 Creat Clearance w eGFR > 60 Random Glucose 86 Calcium 8.8 Total Bilirubin 0.2 AST 13 L ALT 22 Alkaline Phosphatase 112 Ammonia Total Protein 6.6 Albumin 3.4 Urine Color Dkyellow Urine Appearance Clear Urine pH 7.0 Ur Specific [place] 1.024 Urine Protein Negative Urine Glucose (UA) Negative Urine Ketones Negative Urine Blood Negative Urine Nitrite Negative Urine Bilirubin Negative Urine Urobilinogen 4.0 e.u/dl Ur Leukocyte Esterase Trace Urine WBC (Auto) 1 Urine RBC (Auto) 2 Ur Epithelial Cells Rare Urine Mucus Few RPR Titer 03/06/18 03/06/18 07:30 12:40 WBC RBC Hgb Hct MCV MCH MCHC RDW Plt Count MPV Sodium Potassium Chloride Carbon Dioxide Anion Gap BUN Creatinine Creat Clearance w eGFR Random Glucose Calcium Total Bilirubin AST ALT Alkaline Phosphatase Ammonia 46.20 H Total Protein Albumin Urine Color Urine Appearance Urine pH Ur Specific [place] Urine Protein Urine Glucose (UA) Urine Ketones Urine Blood Urine Nitrite Urine Bilirubin Urine Urobilinogen Ur Leukocyte Esterase Urine WBC (Auto) Urine RBC (Auto) Ur Epithelial Cells Urine Mucus RPR Titer Nonreactive repeated ammonia level pending continue with lactulose as ordered aaox3 ambulating no acute distress Assessment: 03/08/18 09:35 mild withdrawal sx Plan: continue detox increase fluids d/c in am
[2018-03-08] MEDS: chlordiazePOXIDE HCL 10 MG CAPSULE PO SCH ×3 (10:49→22:20)
[2018-03-08] MEDS: QUEtiapine FUMARATE 50 MG TABLET PO SCH ×2 (10:49→22:20)
[2018-03-08] MEDS: PRENATAL VITAMINS W/ FOLIC ACID TABLET (FP) PO SCH (10:49)
[2018-03-08] MEDS: NICOTINE 14 MG/24 HOURS TOPICAL PATCH TD SCH (10:49)
[2018-03-08] MEDS: NICOTINE POLACRILEX 4 MG GUM BUC PRN ×4 (11:15→20:52)
[2018-03-08 17:28] VITALS: PULSE 87
[2018-03-08] MEDS ORDERED: hydrOXYzine PAMOATE 25 MG CAPSULE (FP) PO PRN (20:41)
--- NOTE | 2018-03-08 20:41 | PN ---
[facility] Progress Note Note: Vital Signs Temperature 98.3 F 03/08/18 17:27 Pulse Rate 87 03/08/18 17:27 Respiratory Rate 19 03/08/18 17:27 Blood Pressure 105/67 03/08/18 17:27 O2 Sat by Pulse Oximetry (%) Laboratory Last Values WBC 11.1 K/mm3 (4.0-10.0) H 03/06/18 07:30 RBC 5.02 M/mm3 (4.00-5.60) 03/06/18 07:30 Hgb 14.1 GM/dL (11.7-16.9) 03/06/18 07:30 Hct 43.0 % (35.4-49) 03/06/18 07:30 MCV 85.7 fl (80-96) 03/06/18 07:30 MCH 28.0 pg (25.7-33.7) 03/06/18 07:30 MCHC 32.7 g/dl (32.0-35.9) 03/06/18 07:30 RDW 14.3 % (11.9-15.9) 03/06/18 07:30 Plt Count 233 K/MM3 (134-434) 03/06/18 07:30 MPV 8.8 fl (7.5-11.1) 03/06/18 07:30 Sodium 142 mmol/L (136-145) 03/06/18 07:30 Potassium 4.2 mmol/L (3.5-5.1) 03/06/18 07:30 Chloride 106 mmol/L (98-107) 03/06/18 07:30 Carbon Dioxide 26 mmol/L (21-32) 03/06/18 07:30 Anion Gap 9 MMOL/L (8-16) 03/06/18 07:30 BUN 23 mg/dL (7-18) H 03/06/18 07:30 Creatinine 0.9 mg/dL (0.55-1.3) 03/06/18 07:30 Creat Clearance w eGFR > 60 (>60) 03/06/18 07:30 Random Glucose 86 mg/dL (74-106) 03/06/18 07:30 Calcium 8.8 mg/dL (8.5-10.1) 03/06/18 07:30 Total Bilirubin 0.2 mg/dL (0.2-1) 03/06/18 07:30 AST 13 U/L (15-37) L 03/06/18 07:30 ALT 22 U/L (13-61) 03/06/18 07:30 Alkaline Phosphatase 112 U/L (45-117) 03/06/18 07:30 Ammonia 49.87 umol/L (11-32) H 03/08/18 07:00 Total Protein 6.6 g/dl (6.4-8.2) 03/06/18 07:30 Albumin 3.4 g/dl (3.4-5.0) 03/06/18 07:30 Urine Color Dkyellow 03/05/18 10:30 Urine Appearance Clear 03/05/18 10:30 Urine pH 7.0 (5.0-8.0) 03/05/18 10:30 Ur Specific [place] 1.024 (1.001-1.035) 03/05/18 10:30 Urine Protein Negative (NEGATIVE) 03/05/18 10:30 Urine Glucose (UA) Negative (NEGATIVE) 03/05/18 10:30 Urine Ketones Negative (NEGATIVE) 03/05/18 10:30 Urine Blood Negative (NEGATIVE) 03/05/18 10:30 Urine Nitrite Negative (NEGATIVE) 03/05/18 10:30 Urine Bilirubin Negative (<2.0 mg/dL) 03/05/18 10:30 Urine Urobilinogen 4.0 e.u/dl mg/dL (0.2-1.0) 03/05/18 10:30 Ur Leukocyte Esterase Trace (NEGATIVE) 03/05/18 10:30 Urine WBC (Auto) 1 /hpf (3-5) 03/05/18 10:30 Urine RBC (Auto) 2 /hpf (0-3) 03/05/18 10:30 Ur Epithelial Cells Rare /HPF (FEW) 03/05/18 10:30 Urine Mucus Few 03/05/18 10:30 RPR Titer Nonreactive (NONREACTIVE) 03/06/18 07:30 Report received from CHERRI Lyle re: patient punched the wall, is very anxious. Patient reports he got upset because the nurse touched his nicotine gum. Denies pain, dizziness or skin break down. Patient Aox3 no distress, + anxious no adventitious breath sounds skin intact no erythema no visible injury present, full ROM, no joint erythema or effusion injury right hand elevated ammonia levels Plan: unit rules reinforced to patient, patient verbalizes understanding Patient transferred from 6N to 3N continue lactulose increase PO fluids repeat ammonia in AM right hand xray in AM cold compress PRN continue to monitor
[2018-03-08] MEDS: THIAMINE HCL 100 MG TABLET (FP) PO SCH (22:20)
[2018-03-09] MEDS ORDERED: METHADONE HCL 40 MG DISPERSABLE TABLET ONE (04:44)
[2018-03-09] MEDS ORDERED: METHADONE HCL 10 MG TABLET ONE (04:44)
[2018-03-09] MEDS: METHADONE 40 MG, METHADONE 10 MG PO SCH (05:51)
[2018-03-09] MEDS: chlordiazePOXIDE HCL 10 MG CAPSULE PO SCH (05:52)
[2018-03-09 06:14] VITALS: BP 97/61; TEMP 97.9
[2018-03-09] MEDS: NICOTINE POLACRILEX 4 MG GUM BUC PRN (07:28)
--- NOTE | 2018-03-09 12:32 | DS ---
[facility] Detox Discharge Summary Admission Date: 03/05/18 Discharge Date: 03/09/18 - History Present History: Alcohol Dependence, Cocaine Dependence, Opioid Dependence - Physical Exam Results Vital Signs: Vital Signs Temperature 97.9 F 03/09/18 06:12 Pulse Rate 87 03/09/18 06:12 Respiratory Rate 18 03/09/18 06:30 Blood Pressure 97/61 03/09/18 06:12 O2 Sat by Pulse Oximetry (%) Pertinent Admission Physical Exam Findings: PATIENT COMPLETED DETOX TODAY. MEDICALLY STABLE. DENIES SI/HI. ALERT AND ORIENTED X 3. IN NAD. AMB AD LIBERTY ON UNIT. CAR S1S2, RESP CTA BL, EXT FULL ROM. PATIENT TO ACCEPTED REHAB REFERRAL TO [facility]. PATIENT ENCOURAGED TO ATTEND REHAB UNTIL COMPLETION TO PREVENT RELAPSE. - Treatment Hospital Course: Detox Protocol Followed, Detoxed Safely, Responded well, Discharged Condition Good, Rehab Referral Accepted - Medication Discharge Medications: Ambulatory Orders Methadone [Dolophine -] 50 mg PO DAILY 03/05/18 Quetiapine Fumarate [Seroquel -] 100 mg PO HS 03/05/18 - AMA Did Patient Leave Against Medical Advice: No
== END 2018-03-09 08:32 | disposition other institution (70) | DRG 773 ==
LOC: YASAS 08:58 → Y6N 09:38 → Y3N 03-08 20:33
PROC: HZ2ZZZZ Detoxification Services for Substance Abuse Treatment (ICD-10-PCS; principal; 2018-03-05)
DX: F10.230 Alcohol dependence with withdrawal, uncomplicated (principal); F14.20 Cocaine dependence, uncomplicated; F16.20 Hallucinogen dependence, uncomplicated; F12.20 Cannabis dependence, uncomplicated; F11.20 Opioid dependence, uncomplicated; F17.210 Nicotine dependence, cigarettes, uncomplicated; F31.9 Bipolar disorder, unspecified; F32.9 Major depressive disorder, single episode, unspecified; R63.4 Abnormal weight loss; Z68.27 Body mass index [BMI] 27.0-27.9, adult; Z86.19 Personal history of other infectious and parasitic diseases
CPT/HCPCS: 36415; 80053; 81003; 81015; 82140; 85027; 86593; 93005; 93010

== ENCOUNTER 2018-03-09 11:05 | Inpatient (IN) | payer OTHER ==
[2018-03-09 12:27] VITALS: BMI 29.2
--- NOTE | 2018-03-09 15:34 | HP ---
[facility] Rehab Assess/Revision - Admission History Admitted to Rehab from: [facility] Date of Admission to Rehab: 03/09/18 - Vital signs Vital Signs: Vital Signs Period Temp Pulse Resp BP Sys/Gamez Pulse Ox Last 24 Hr 97.2 F 106 20 123/72 - Findings Detox History & Physical reviewed: Yes Concur with findings: Yes Comments/Additional Findings: for rehab as protocol Inpatient Rehab Admission - Initial Determination Are CD services needed?: Yes Free of communicable disease: Yes Not in need of hospitalization: Yes - Rehab Admission Criteria Previous failed treatment: Yes Poor recovery environment: Yes Comorbidities: Yes Lacks judgement: No Patient is meeting Inpatient Rehab admission criteria:: Yes
[2018-03-09] MEDS ORDERED: MAGNESIUM HYDROX 2400MG/30ML ORAL SUSPENSION 30 ML CUP PO PRN (15:38)
[2018-03-09] MEDS ORDERED: P-EPHED 60MG/TRIPROLIDI 2.5MG TABLET PO PRN (15:38)
[2018-03-09] MEDS ORDERED: MAG HYDROX/AL HYDROX/SIMETH 30 ML UNIT-DOSE CUP PO PRN (15:38)
[2018-03-09] MEDS ORDERED: NICOTINE POLACRILEX 2 MG GUM BUC PRN (15:38)
[2018-03-09] MEDS ORDERED: IBUPROFEN 400 MG TABLET (FP) PO PRN (15:38)
[2018-03-09] MEDS ORDERED: LOPERAMIDE HCL 2 MG CAPSULE PO PRN (15:38)
[2018-03-09] MEDS ORDERED: MAGNESIUM CITRATE 300 ML BOTTLE PO PRN (15:38)
[2018-03-09] MEDS ORDERED: MENTHOL/PHENOL 1 EACH UD MM PRN (15:38)
[2018-03-09] MEDS ORDERED: hydrOXYzine PAMOATE 50 MG CAPSULE (FP) PO PRN (15:38)
[2018-03-09] MEDS ORDERED: ACETAMINOPHEN 325 MG TABLET (FP) PO PRN (15:38)
[2018-03-09] MEDS ORDERED: guaiFENesin/D-METHORPHAN HB 10 ML UNIT-DOSE CUPS PO PRN (15:38)
[2018-03-09 16:55] VITALS: BP 131/70; PULSE 110; TEMP 99.2
[2018-03-09] MEDS ORDERED: NICOTINE 14 MG/24 HOURS TOPICAL PATCH TD SCH (17:00)
--- NOTE | 2018-03-09 19:00 | PN ---
S Progress Note Note: Vital Signs Temperature 99.2 F 03/09/18 16:54 Pulse Rate 110 H 03/09/18 16:54 Respiratory Rate 18 03/09/18 16:54 Blood Pressure 131/70 03/09/18 16:54 O2 Sat by Pulse Oximetry (%) elevated ammonia levels lactulose TID repeat ammonia in AM increase fluids continue to monitor
--- NOTE | 2018-03-09 19:19 | PN ---
S Progress Note Note: Psychiatric nurse practitioner note: Pt. admitted to 5N from detox. Patient to continue current psychotrophic medications. Ammonia level ordered for the morning due to elevated ammonia level. At this time seroquel dose to remain at 50m BID until labs results are completed and acknowledged.
--- NOTE | 2018-03-09 19:56 | PN ---
[facility] Progress Note Note: Vital Signs Temperature 99.2 F 03/09/18 16:54 Pulse Rate 110 H 03/09/18 16:54 Respiratory Rate 18 03/09/18 16:54 Blood Pressure 131/70 03/09/18 16:54 O2 Sat by Pulse Oximetry (%) Patient did not wait, left AMA.
[2018-03-09] MEDS ORDERED: MELATONIN 5 MG TABLETS PO PRN (22:00)
[2018-03-09] MEDS ORDERED: QUEtiapine FUMARATE 50 MG TABLET PO SCH (22:00)
[2018-03-09] MEDS ORDERED: THIAMINE HCL 100 MG TABLET (FP) PO SCH (22:00)
[2018-03-09] MEDS ORDERED: LACTULOSE 20 GM/30 ML UDC (FOR ORAL USE ONLY) PO SCH (22:00)
[2018-03-10] MEDS ORDERED: METHADONE 40 MG, METHADONE 10 MG PO SCH (06:00)
[2018-03-10] MEDS ORDERED: METHADONE HCL 10 MG TABLET PO SCH (06:00)
[2018-03-10] MEDS ORDERED: PRENATAL VITAMINS W/ FOLIC ACID TABLET (FP) PO SCH (10:00)
== END 2018-03-09 20:10 | disposition left against medical advice (07) | DRG 770 ==
LOC: YASAS 11:05 → Y5N 15:46
PROVIDERS: ADMIT Psychiatry & Neurology Psychiatry; ATTEND Psychiatry & Neurology Psychiatry
PROC: HZ42ZZZ Group Counseling for Substance Abuse Treatment, Cognitive-Behavioral (ICD-10-PCS; principal; 2018-03-09)
DX: F10.230 Alcohol dependence with withdrawal, uncomplicated (principal); F14.20 Cocaine dependence, uncomplicated; F16.20 Hallucinogen dependence, uncomplicated; F12.20 Cannabis dependence, uncomplicated; F11.20 Opioid dependence, uncomplicated; F17.210 Nicotine dependence, cigarettes, uncomplicated; F31.89 Other bipolar disorder; F32.9 Major depressive disorder, single episode, unspecified; R63.4 Abnormal weight loss; Z68.27 Body mass index [BMI] 27.0-27.9, adult; Z86.19 Personal history of other infectious and parasitic diseases

== ENCOUNTER 2019-02-21 10:51 | Inpatient (IN) | payer OTHER ==
[2019-02-21 11:43] VITALS: BMI 30.1
--- NOTE | 2019-02-21 12:19 | HP ---
COWS - Scale Resting Pulse: 1= IL 81-100 Sweatin=Flushed/Facial Moisture Restless Observation: 1= Difficult to Sit Still Pupil Size: 2= Moderately Dilated Bone or Joint Aches: 2= Severe Diffuse Aches Runny Nose/ Eye Tearin= Runny Nose/Eyes GI Upset > 30mins: 2= Nausea/Diarrhea Tremor Observation: 1= Tremor Anthony, Not Seen Yawning Observation: 1= 1-2x During Session Anxiety or Irritability: 2=Irritable/Anxious Goose Flesh Skin: 0=Smooth Skin COWS Score: 16 CIWA Score - Admission Criteria [facility] Guidelines: Admission for Medically Managed Detox: Requires at least one of the followin. CIWA greater than 12 2. Seizures within the past 24 hours 3. Delirium tremens within the past 24 hours 4. Hallucinations within the past 24 hours 5. Acute intervention needed for co occurring medical disorder 6. Acute intervention needed for co occurring psychiatric disorder 7. Severe withdrawal that cannot be handled at a lower level of care (continued vomiting, continued diarrhea, abnormal vital signs) requiring intravenous medication and/or fluids 8. Admission ROS [facility] Chief Complaint: "I am here because I am using opiates, cocaine, PCP." Allergies/Adverse Reactions: Allergies Allergy/AdvReac Type Severity Reaction Status Date / Time Penicillins Allergy Severe RASH Verified 02/21/19 11:31 History of Present Illness: 38 male who has a history of opioid dependence, was abstinent for almost one year and just relapsed 2 weeks ago. He has been depressed lately but not to the point of actually hurting himself. He denies any suicidal ideation or plans. He is currently using 3 bags of heroin per day, last used 1.5 days ago. He is currently using 7 bags of cocaine per day, last used 2 days ago. He did overdosed twice at the beginning of this year. He does not have a narcan kit. Patient smokes sporadically 1 ciggarette per day. Patient used to smoke less often. PMH:None PSurgHx: Right Inguinal Herniorrhaphy 2011 Psych Hx: Depression on no meds. All: PCN - Ebola screening Have you traveled outside of the country in the last 21 days: No Have you had contact with anyone from an Ebola affected area: No Have you been sick,other than usual withdrawal symptoms: No Do you have a fever: No - Review of Systems Constitutional: Chills, Diaphoresis EENT: reports: No Symptoms Reported Respiratory: reports: No Symptoms reported Cardiac: reports: No Symptoms Reported GI: reports: Diarrhea, Difficulty Swallowing, Nausea, Abdominal cramping : reports: No Symptoms Reported Musculoskeletal: reports: Back Pain Integumentary: reports: No Symptoms Reported Neuro: reports: Headache Endocrine: reports: No Symptoms Reported Hematology: reports: No Symptoms Reported Psychiatric: reports: Anxious, Depressed Other Systems: Reviewed and Negative Patient History - Patient Medical History Hx Anemia: No Hx Asthma: No Hx Chronic Obstructive Pulmonary Disease (COPD): No Hx Cancer: No Hx Cardiac Disorders: No Hx Congestive Heart Failure: No Hx Hypertension: No Hx Hypercholesterolemia: No Hx Pacemaker: No HX Cerebrovascular Accident: No Hx Seizures: No Hx Dementia: No Hx Diabetes: No Hx Gastrointestinal Disorders: No Hx Liver Disease: No Hx Genitourinary Disorders: No Hx Sexually Transmitted Disorders: No Hx Renal Disease (ESRD): No Hx Thyroid Disease: No Hx Human Immunodeficiency Virus (HIV): No (03/02/18 negative) Hx Hepatitis C: Yes (treated 3 years ago) Hx Depression: Yes (Denies SI/HI) Hx Suicide Attempt: No Hx Bipolar Disorder: Yes Hx Schizophrenia: No - Patient Surgical History Past Surgical History: No Hx Neurologic Surgery: No Hx Cataract Extraction: No Hx Cardiac Surgery: No Hx Lung Surgery: No Hx Breast Surgery: No Hx Breast Biopsy: No Hx Abdominal Surgery: Yes (right inguinal hernia repair at age 29 years) Hx Appendectomy: No Hx Cholecystectomy: No Hx Genitourinary Surgery: No Hx Section: No Hx Orthopedic Surgery: No Other Surgical History: R INGUINAL HERNIA AT AGE 29 Anesthesia Reaction: No - PPD History Date: 01/01/17 Results: 0 mm - Smoking Cessation Smoking history: Current every day smoker Have you smoked in the past 12 months: Yes Aproximately how many cigarettes per day: 3 Hx Chewing Tobacco Use: No Initiated information on smoking cessation: Yes 'Breaking Loose' booklet given: 02/21/19 - Substances abused Cocaine Substance route: Injection Frequency: Daily Amount used: 10 bags Age of first use: 22 Date of last use: 02/21/19 Heroin Substance route: Injection Frequency: Daily Amount used: 3 bags Age of first use: 22 Date of last use: 02/21/19 PCP Substance route: Smoking Frequency: Daily Amount used: 3 bags Age of first use: 15 Date of last use: 02/21/19 Family Disease History - Family Disease History Family Disease History: Other: Father (ETOH dependence ) Admission Physical Exam [facility] - Vital Signs Vital Signs: Vital Signs - 24 hr 02/21/19 02/21/19 11:29 12:08 Temperature 97.7 F 97.7 F Pulse Rate 94 H 94 H Respiratory 18 18 Rate Blood Pressure 132/85 132/85 - Physical General Appearance: Yes: Mild Distress, Moderate Distress HEENTM: Yes: EOMI, Hearing grossly Normal, Normocephalic, Normal Voice, MARSHA, Pharynx Normal, Tm's normal Respiratory: Yes: Chest Non-Tender, Lungs Clear, Normal Breath Sounds, No Respiratory Distress, No Accessory Muscle Use Neck: Yes: No masses,lesions,Nodules, Supple, Trachea in good position Breast: Yes: Within Normal Limits Cardiology: Yes: Regular Rhythm, Regular Rate, S1, S2 Abdominal: Yes: Normal Bowel Sounds, Non Tender, Flat, Soft Genitourinary: Yes: Within Normal Limits Back: Yes: Normal Inspection Musculoskeletal: Yes: full range of Motion, Gait Steady, Pelvis Stable Extremities: Yes: Normal Capillary Refill, Normal Inspection, Normal Range of Motion, Non-Tender 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: 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: 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, Fully Oriented, Alert, Motor Strength 5/5, Normal Mood/Affect Integumentary: Yes: Normal Color, Warm Lymphatic: Yes: Within Normal Limits Cleared for Admission [facility] - Detox or Rehab [facility] Level of Care: Medically Managed Detox Regimen/Protocol: Methadone Claeared for Rehab Admission: No Screened but not Admitted - Documentation of Visit Screened but not Admitted: No Left Prior to Completion of Assessment: No Insurance Authorization Denied: No Patient Does Not Meet Criteria for Admission: No Alternative Treatment/Senior Living Info Provided: No Breathalyzer - Breathalyzer Breathalyzer: 0 Vital Signs - Vital Signs Vital signs refused: No Temperature: 97.7 F Temperature source: Oral Pulse Rate: 94 Respiratory Rate: 18 Blood Pressure: 132/85 BP Location: Left Arm Blood Pressure position: Sitting - Height Height: 5 ft 5 in - Weight Weight: 181 lb Weight measurement method: Standing scale - BMI Body Mass Index (BMI): 30.1 - Bowel Function Bowel Movement: Yes Urine Drug Screen - Test Device Lot number: [id number] Expiration date: 11/03/20 - Control Is test valid?: Yes - Results Drug screen NEGATIVE: No Urine drug screen results: MTD-Methadone, BZO-Benzodiazepines Inpatient Rehab Admission - Rehab Decision to Admit Inpatient rehab admission?: No
[2019-02-21] MEDS ORDERED: ACETAMINOPHEN 325 MG TABLET (FP) PO PRN ×2 (12:42)
[2019-02-21] MEDS ORDERED: MAGNESIUM CITRATE 300 ML BOTTLE PO PRN (12:42)
[2019-02-21] MEDS ORDERED: BISMUTH SUBSALICYLATE 524 MG/30 ML UD PO PRN (12:42)
[2019-02-21] MEDS ORDERED: MAG HYDROX/AL HYDROX/SIMETH 30 ML UNIT-DOSE CUP PO PRN (12:42)
[2019-02-21] MEDS ORDERED: IBUPROFEN 400 MG TABLET (FP) PO PRN (12:42)
[2019-02-21] MEDS ORDERED: MENTHOL/PHENOL 1 EACH UD MM PRN (12:42)
[2019-02-21] MEDS ORDERED: cloNIDine HCL 0.1 MG TABLET PO PRN (12:42)
[2019-02-21] MEDS ORDERED: METHOCARBAMOL 500 MG TABLET PO PRN (12:42)
[2019-02-21] MEDS ORDERED: MAGNESIUM HYDROX 2400MG/30ML ORAL SUSPENSION 30 ML CUP PO PRN (12:42)
[2019-02-21] MEDS ORDERED: METHADONE HCL 10 MG TABLET (FOR DETOX USE ONLY) PO ONE (14:00)
[2019-02-21] MEDS: hydrOXYzine PAMOATE 25 MG CAPSULE (FP) PO PRN ×2 (14:06→22:06)
[2019-02-21 17:14] LABS: ALBUMIN 4.3 g/dl (3.4-5.0); BILIRUBIN,TOTAL 0.8 mg/dL (0.2-1); CALCIUM 9.4 mg/dL (8.5-10.1); CREATININE 1.1 mg/dL (0.55-1.3); POTASSIUM 3.6 mmol/L (3.5-5.1); TOT PROT 7.9 g/dl (6.4-8.2)
[2019-02-21 17:25] LABS: HEMATOCRIT 44.5 % (35.4-49); HEMOGLOBIN 15.6 GM/dL (11.7-16.9); MCHC 34.9 g/dl (32.0-35.9); MEAN CELL VOLUME 83.1 fl (80-96); MEAN PLT VOLUME 9.5 fl (7.5-11.1); PLATELET COUNT 224 K/MM3 (134-434); RBC 5.36 M/mm3 (4.00-5.60); RDW 12.8 % (11.9-15.9); WHITE BLOOD COUNT 9.1 K/mm3 (4.0-10.0)
[2019-02-21] MEDS: MELATONIN 5 MG TABLETS PO PRN (22:06)
[2019-02-21] MEDS: THIAMINE HCL 100 MG TABLET (FP) PO SCH (22:06)
--- NOTE | 2019-02-22 09:20 | PN ---
BHS COWS - Scale Resting Pulse: 1= [place] 81-100 Sweatin= Chills/Flushing Restless Observation: 0= Sits Still Pupil Size: 1= Pupils >than Normal Bone or Joint Aches: 1= Mild Discomfort Runny Nose/ Eye Tearin= Nasal Congestion GI Upset > 30mins: 1= Stomach Cramp Tremor Observation of Outstretched Hands: 2= Slight Tremor Visible Yawning Observation: 1= 1-2x During Session Anxiety or Irritability: 2=Irritable/Anxious Goose Flesh Skin: 3=Piloerection COWS Score: 14 BHS Progress Note (SOAP) Subjective: 38 years old male 4th patient [facility] admission since 2017 doing well with methadone detox regimen sitting on the bed eating breakfast speech clearly coherently no trouble chewing swallowing food tolerate food and fluid well Objective: 02/22/19 09:19 Vital Signs Temperature 97.3 F L 02/22/19 09:17 Pulse Rate 83 02/22/19 09:17 Respiratory Rate 18 02/22/19 09:17 Blood Pressure 120/82 02/22/19 09:17 O2 Sat by Pulse Oximetry (%) Laboratory Last Values WBC 9.1 K/mm3 (4.0-10.0) 02/21/19 13:00 RBC 5.36 M/mm3 (4.00-5.60) 02/21/19 13:00 Hgb 15.6 GM/dL (11.7-16.9) 02/21/19 13:00 Hct 44.5 % (35.4-49) 02/21/19 13:00 MCV 83.1 fl (80-96) 02/21/19 13:00 MCH 29.0 pg (25.7-33.7) 02/21/19 13:00 MCHC 34.9 g/dl (32.0-35.9) 02/21/19 13:00 RDW 12.8 % (11.9-15.9) D 02/21/19 13:00 Plt Count 224 K/MM3 (134-434) 02/21/19 13:00 MPV 9.5 fl (7.5-11.1) 02/21/19 13:00 Sodium 140 mmol/L (136-145) 02/21/19 13:00 Potassium 3.6 mmol/L (3.5-5.1) 02/21/19 13:00 Chloride 104 mmol/L (98-107) 02/21/19 13:00 Carbon Dioxide 28 mmol/L (21-32) 02/21/19 13:00 Anion Gap 8 MMOL/L (8-16) 02/21/19 13:00 BUN 14.0 mg/dL (7-18) 02/21/19 13:00 Creatinine 1.1 mg/dL (0.55-1.3) 02/21/19 13:00 Est GFR (CKD-EPI)AfAm 99.57 02/21/19 13:00 Est GFR (CKD-EPI)NonAf 85.91 02/21/19 13:00 Random Glucose 88 mg/dL (74-106) 02/21/19 13:00 Calcium 9.4 mg/dL (8.5-10.1) 02/21/19 13:00 Total Bilirubin 0.8 mg/dL (0.2-1) 02/21/19 13:00 AST 13 U/L (15-37) L 02/21/19 13:00 ALT 24 U/L (13-61) 02/21/19 13:00 Alkaline Phosphatase 80 U/L (45-117) 02/21/19 13:00 Total Protein 7.9 g/dl (6.4-8.2) 02/21/19 13:00 Albumin 4.3 g/dl (3.4-5.0) 02/21/19 13:00 lab noted Assessment: 02/22/19 09:19 opiate withdrawal sx Plan: continue methadone detox regimen 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
[2019-02-22] MEDS ORDERED: METHADONE HCL 10 MG TABLET (FOR DETOX USE ONLY) ONE (09:32)
[2019-02-22] MEDS ORDERED: METHADONE HCL 5 MG TABLET (FOR DETOX USE ONLY) ONE (09:32)
[2019-02-22] MEDS ORDERED: METHADONE (DETOX) 20 MG, METHADONE (DETOX) 5 MG PO ONE (10:00)
[2019-02-22] MEDS: PRENATAL VITAMINS W/ FOLIC ACID TABLET (FP) PO SCH (10:09)
[2019-02-22] MEDS: hydrOXYzine PAMOATE 25 MG CAPSULE (FP) PO PRN (22:07)
[2019-02-22] MEDS: MELATONIN 5 MG TABLETS PO PRN (22:07)
[2019-02-22] MEDS: THIAMINE HCL 100 MG TABLET (FP) PO SCH (22:07)
[2019-02-23] MEDS ORDERED: METHADONE HCL 10 MG TABLET (FOR DETOX USE ONLY) PO ONE (10:00)
[2019-02-23] MEDS: PRENATAL VITAMINS W/ FOLIC ACID TABLET (FP) PO SCH (10:58)
--- NOTE | 2019-02-23 17:10 | PN ---
BHS COWS - Scale Resting Pulse: 0= [place] 80 or Below Sweatin= Chills/Flushing Restless Observation: 0= Sits Still Pupil Size: 0= Normal to Room Light Bone or Joint Aches: 2= Severe Diffuse Aches Runny Nose/ Eye Tearin= Nasal Congestion GI Upset > 30mins: 2= Nausea/Diarrhea Tremor Observation of Outstretched Hands: 0= None Yawning Observation: 1= 1-2x During Session Anxiety or Irritability: 2=Irritable/Anxious Goose Flesh Skin: 3=Piloerection COWS Score: 12 BHS Progress Note (SOAP) Subjective: Nausea, Upset Stomach, Anxious. Objective: PATIENT A & O X 3, OBSERVED AMBULATING ON DETOX UNIT UNASSISTED. IN NO ACUTE DISTRESS. 02/23/19 17:11 Vital Signs Temperature 97.2 F L 02/23/19 14:54 Pulse Rate 77 02/23/19 14:54 Respiratory Rate 20 02/23/19 14:54 Blood Pressure 118/83 02/23/19 14:54 O2 Sat by Pulse Oximetry (%) Laboratory Tests 02/21/19 02/21/19 02/21/19 13:00 13:00 13:00 WBC 9.1 RBC 5.36 Hgb 15.6 Hct 44.5 MCV 83.1 MCH 29.0 MCHC 34.9 RDW 12.8 D Plt Count 224 MPV 9.5 Sodium 140 Potassium 3.6 Chloride 104 Carbon Dioxide 28 Anion Gap 8 BUN 14.0 Creatinine 1.1 Est GFR (CKD-EPI)AfAm 99.57 Est GFR (CKD-EPI)NonAf 85.91 Random Glucose 88 Calcium 9.4 Total Bilirubin 0.8 AST 13 L ALT 24 Alkaline Phosphatase 80 Total Protein 7.9 Albumin 4.3 RPR Titer Nonreactive TB (QFT) Incubation TB Test (QFT) Nil TB Test (QFT) Mitogen TB Test (QFT) Antigen TB Test (QFT) TB Positive Criteria 02/21/19 13:00 WBC RBC Hgb Hct MCV MCH MCHC RDW Plt Count MPV Sodium Potassium Chloride Carbon Dioxide Anion Gap BUN Creatinine Est GFR (CKD-EPI)AfAm Est GFR (CKD-EPI)NonAf Random Glucose Calcium Total Bilirubin AST ALT Alkaline Phosphatase Total Protein Albumin RPR Titer TB (QFT) Incubation TB Test (QFT) Nil 0.03 TB Test (QFT) Mitogen >10.00 TB Test (QFT) Antigen 0.05 TB Test (QFT) Negative TB Positive Criteria LABS NOTED. Assessment: 02/23/19 17:12 WITHDRAWAL SYMPTOMS. Plan: CONTINUE DETOX.
[2019-02-23] MEDS: THIAMINE HCL 100 MG TABLET (FP) PO SCH (22:10)
[2019-02-23] MEDS: hydrOXYzine PAMOATE 25 MG CAPSULE (FP) PO PRN (22:11)
[2019-02-23] MEDS: MELATONIN 5 MG TABLETS PO PRN (22:11)
[2019-02-24] MEDS ORDERED: METHADONE HCL 10 MG TABLET (FOR DETOX USE ONLY) ONE (08:36)
[2019-02-24] MEDS ORDERED: METHADONE HCL 5 MG TABLET (FOR DETOX USE ONLY) ONE (08:36)
[2019-02-24] MEDS ORDERED: METHADONE (DETOX) 10 MG, METHADONE (DETOX) 5 MG PO ONE (10:00)
[2019-02-24] MEDS: PRENATAL VITAMINS W/ FOLIC ACID TABLET (FP) PO SCH (13:57)
--- NOTE | 2019-02-24 14:57 | PN ---
S CIWA - CIWA Score Nausea/Vomitin Muscle Tremors: None Anxiety: 3 Agitation: 2 Paroxysmal Sweats: No Perspiration Orientation: 0-Oriented Tacttile Disturbances: 1-Very Mild Itch/Numbness Auditory Disturbances: 0-None Visual Disturbances: 2-Mild Sensitivity Headache: 0-None Present CIWA-Ar Total Score: 10 S COWS - Scale Resting Pulse: 1= [place] 81-100 Sweatin= Chills/Flushing Restless Observation: 1= Difficult to Sit Still Pupil Size: 0= Normal to Room Light Bone or Joint Aches: 0= None Runny Nose/ Eye Tearin= None GI Upset > 30mins: 2= Nausea/Diarrhea Tremor Observation of Outstretched Hands: 0= None Yawning Observation: 1= 1-2x During Session Anxiety or Irritability: 2=Irritable/Anxious Goose Flesh Skin: 0=Smooth Skin COWS Score: 8 BHS Progress Note (SOAP) Subjective: Nausea, Anxious, Upset Stomach. Patient reports That Current withdrawal Detox Symptoms in General Are Gradually Beginning to subside. Objective: PATIENT A & O X 2 (UNCERTAIN ABOUT CURRENT DAY/ DATE). PATIENT OBSERVED AMBULATING ON DETOX UNIT UNASSISTED. IN NO ACUTE DISTRESS. 02/24/19 14:59 Vital Signs Temperature 97.8 F 02/24/19 13:17 Pulse Rate 77 02/24/19 13:17 Respiratory Rate 18 02/24/19 13:17 Blood Pressure 108/68 02/24/19 13:17 O2 Sat by Pulse Oximetry (%) Laboratory Tests 02/21/19 02/21/19 02/21/19 13:00 13:00 13:00 WBC 9.1 RBC 5.36 Hgb 15.6 Hct 44.5 MCV 83.1 MCH 29.0 MCHC 34.9 RDW 12.8 D Plt Count 224 MPV 9.5 Sodium 140 Potassium 3.6 Chloride 104 Carbon Dioxide 28 Anion Gap 8 BUN 14.0 Creatinine 1.1 Est GFR (CKD-EPI)AfAm 99.57 Est GFR (CKD-EPI)NonAf 85.91 Random Glucose 88 Calcium 9.4 Total Bilirubin 0.8 AST 13 L ALT 24 Alkaline Phosphatase 80 Total Protein 7.9 Albumin 4.3 RPR Titer Nonreactive TB (QFT) Incubation TB Test (QFT) Nil TB Test (QFT) Mitogen TB Test (QFT) Antigen TB Test (QFT) TB Positive Criteria 02/21/19 13:00 WBC RBC Hgb Hct MCV MCH MCHC RDW Plt Count MPV Sodium Potassium Chloride Carbon Dioxide Anion Gap BUN Creatinine Est GFR (CKD-EPI)AfAm Est GFR (CKD-EPI)NonAf Random Glucose Calcium Total Bilirubin AST ALT Alkaline Phosphatase Total Protein Albumin RPR Titer TB (QFT) Incubation TB Test (QFT) Nil 0.03 TB Test (QFT) Mitogen >10.00 TB Test (QFT) Antigen 0.05 TB Test (QFT) Negative TB Positive Criteria LABS NOTED. Assessment: 02/24/19 15:00 WITHDRAWAL SYMPTOMS. Plan: CONTINUE DETOX.
[2019-02-24] MEDS: THIAMINE HCL 100 MG TABLET (FP) PO SCH (22:44)
--- NOTE | 2019-02-25 09:37 | PN ---
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 treatment 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 Objective: 02/25/19 09:38 Vital Signs Temperature 96.6 F L 02/25/19 09:13 Pulse Rate 74 02/25/19 09:13 Respiratory Rate 16 02/25/19 09:13 Blood Pressure 104/59 L 02/25/19 09:13 O2 Sat by Pulse Oximetry (%) Laboratory Last Values WBC 9.1 K/mm3 (4.0-10.0) 02/21/19 13:00 RBC 5.36 M/mm3 (4.00-5.60) 02/21/19 13:00 Hgb 15.6 GM/dL (11.7-16.9) 02/21/19 13:00 Hct 44.5 % (35.4-49) 02/21/19 13:00 MCV 83.1 fl (80-96) 02/21/19 13:00 MCH 29.0 pg (25.7-33.7) 02/21/19 13:00 MCHC 34.9 g/dl (32.0-35.9) 02/21/19 13:00 RDW 12.8 % (11.9-15.9) D 02/21/19 13:00 Plt Count 224 K/MM3 (134-434) 02/21/19 13:00 MPV 9.5 fl (7.5-11.1) 02/21/19 13:00 Sodium 140 mmol/L (136-145) 02/21/19 13:00 Potassium 3.6 mmol/L (3.5-5.1) 02/21/19 13:00 Chloride 104 mmol/L (98-107) 02/21/19 13:00 Carbon Dioxide 28 mmol/L (21-32) 02/21/19 13:00 Anion Gap 8 MMOL/L (8-16) 02/21/19 13:00 BUN 14.0 mg/dL (7-18) 02/21/19 13:00 Creatinine 1.1 mg/dL (0.55-1.3) 02/21/19 13:00 Est GFR (CKD-EPI)AfAm 99.57 02/21/19 13:00 Est GFR (CKD-EPI)NonAf 85.91 02/21/19 13:00 Random Glucose 88 mg/dL (74-106) 02/21/19 13:00 Calcium 9.4 mg/dL (8.5-10.1) 02/21/19 13:00 Total Bilirubin 0.8 mg/dL (0.2-1) 02/21/19 13:00 AST 13 U/L (15-37) L 02/21/19 13:00 ALT 24 U/L (13-61) 02/21/19 13:00 Alkaline Phosphatase 80 U/L (45-117) 02/21/19 13:00 Total Protein 7.9 g/dl (6.4-8.2) 02/21/19 13:00 Albumin 4.3 g/dl (3.4-5.0) 02/21/19 13:00 RPR Titer Nonreactive (NONREACTIVE) 02/21/19 13:00 TB (QFT) Incubation (.) 02/21/19 13:00 TB Test (QFT) Nil 0.03 IU/mL (.) 02/21/19 13:00 TB Test (QFT) Mitogen >10.00 IU/mL (.) 02/21/19 13:00 TB Test (QFT) Antigen 0.05 IU/mL (.) 02/21/19 13:00 TB Test (QFT) Negative (Negative) 02/21/19 13:00 TB Positive Criteria (.) 02/21/19 13:00 lab noted Assessment: 02/25/19 09:39 opiate withdrawal sx Plan: continue methadone detox regimen
[2019-02-25] MEDS ORDERED: METHADONE HCL 10 MG TABLET (FOR DETOX USE ONLY) PO ONE (10:00)
[2019-02-25] MEDS: PRENATAL VITAMINS W/ FOLIC ACID TABLET (FP) PO SCH (10:55)
[2019-02-25] MEDS: THIAMINE HCL 100 MG TABLET (FP) PO SCH (22:51)
[2019-02-26] MEDS ORDERED: METHADONE HCL 5 MG TABLET (FOR DETOX USE ONLY) PO ONE (06:00)
[2019-02-26 06:51] VITALS: BP 103/73; PULSE 67; TEMP 97.4
--- NOTE | 2019-02-26 15:24 | DS ---
[facility] Detox Discharge Summary Admission Date: 02/21/19 Discharge Date: 02/26/19 - History Present History: Opioid Dependence Additional Comments: did well with methadone detox regimen no complication through out the detox regimen patient is alert oriented x 3 speech clearly coherent ambulate steady gait extremities full range of motion abdomen soft no rebound tenderness skin warm and dry - Physical Exam Results Vital Signs: Vital Signs Temperature 97.4 F L 02/26/19 06:50 Pulse Rate 67 02/26/19 06:50 Respiratory Rate 18 02/26/19 06:50 Blood Pressure 103/73 02/26/19 06:50 O2 Sat by Pulse Oximetry (%) Pertinent Admission Physical Exam Findings: opiate withdrawal sx Laboratory Last Values WBC 9.1 K/mm3 (4.0-10.0) 02/21/19 13:00 RBC 5.36 M/mm3 (4.00-5.60) 02/21/19 13:00 Hgb 15.6 GM/dL (11.7-16.9) 02/21/19 13:00 Hct 44.5 % (35.4-49) 02/21/19 13:00 MCV 83.1 fl (80-96) 02/21/19 13:00 MCH 29.0 pg (25.7-33.7) 02/21/19 13:00 MCHC 34.9 g/dl (32.0-35.9) 02/21/19 13:00 RDW 12.8 % (11.9-15.9) D 02/21/19 13:00 Plt Count 224 K/MM3 (134-434) 02/21/19 13:00 MPV 9.5 fl (7.5-11.1) 02/21/19 13:00 Sodium 140 mmol/L (136-145) 02/21/19 13:00 Potassium 3.6 mmol/L (3.5-5.1) 02/21/19 13:00 Chloride 104 mmol/L (98-107) 02/21/19 13:00 Carbon Dioxide 28 mmol/L (21-32) 02/21/19 13:00 Anion Gap 8 MMOL/L (8-16) 02/21/19 13:00 BUN 14.0 mg/dL (7-18) 02/21/19 13:00 Creatinine 1.1 mg/dL (0.55-1.3) 02/21/19 13:00 Est GFR (CKD-EPI)AfAm 99.57 02/21/19 13:00 Est GFR (CKD-EPI)NonAf 85.91 02/21/19 13:00 Random Glucose 88 mg/dL (74-106) 02/21/19 13:00 Calcium 9.4 mg/dL (8.5-10.1) 02/21/19 13:00 Total Bilirubin 0.8 mg/dL (0.2-1) 02/21/19 13:00 AST 13 U/L (15-37) L 02/21/19 13:00 ALT 24 U/L (13-61) 02/21/19 13:00 Alkaline Phosphatase 80 U/L (45-117) 02/21/19 13:00 Total Protein 7.9 g/dl (6.4-8.2) 02/21/19 13:00 Albumin 4.3 g/dl (3.4-5.0) 02/21/19 13:00 RPR Titer Nonreactive (NONREACTIVE) 02/21/19 13:00 TB (QFT) Incubation (.) 02/21/19 13:00 TB Test (QFT) Nil 0.03 IU/mL (.) 02/21/19 13:00 TB Test (QFT) Mitogen >10.00 IU/mL (.) 02/21/19 13:00 TB Test (QFT) Antigen 0.05 IU/mL (.) 02/21/19 13:00 TB Test (QFT) Negative (Negative) 02/21/19 13:00 TB Positive Criteria (.) 02/21/19 13:00 lab noted - Treatment Hospital Course: Detox Protocol Followed, Detoxed Safely, Responded well, Discharged Condition Good, Rehab Referral Accepted Patient has Accepted a Rehab Referral to: [facility] - Medication Discharge Medications: Ambulatory Orders Naloxone HCl [Narcan] 4 mg NS ASDIR PRN #1 spray 02/22/19 - Diagnosis (1) Opioid dependence with withdrawal Status: Acute (2) Nicotine dependence Status: Acute Qualifiers: Nicotine product type: cigarettes Substance use status: in withdrawal Qualified Code(s): F17.213 - Nicotine dependence, cigarettes, with withdrawal - AMA Did Patient Leave Against Medical Advice: No COWS (PN) - Opiate Withdrawal Resting Pulse: 0= [place] 80 or Below Sweatin= Chills/Flushing Restless Observation: 0= Sits Still Pupil Size: 0= Normal to Room Light Bone or Joint Aches: 0= None Runny Nose/ Eye Tearin= None GI Upset > 30mins: 0= None Tremor Observation of Outstretched Hands: 1= Tremor [place], Not Seen Yawning Observation: 0= None Anxiety or Irritability: 1=Feels Anxious/Irritable Goose Flesh Skin: 0=Smooth Skin COWS Score: 3
== END 2019-02-26 08:40 | disposition home or self-care (01) | DRG 773 ==
LOC: YASAS 10:51 → Y3N 13:15
PROVIDERS: ADMIT Surgery; ATTEND Surgery
PROC: HZ2ZZZZ Detoxification Services for Substance Abuse Treatment (ICD-10-PCS; principal; 2019-02-21)
DX: F11.23 Opioid dependence with withdrawal (principal); F14.20 Cocaine dependence, uncomplicated; F16.20 Hallucinogen dependence, uncomplicated; F17.213 Nicotine dependence, cigarettes, with withdrawal; F32.9 Major depressive disorder, single episode, unspecified; B18.2 Chronic viral hepatitis C
CPT/HCPCS: 36415; 80053; 85027; 86480; 86593

== ENCOUNTER 2019-07-14 10:06 | Inpatient (IN) | payer OTHER ==
[2019-07-14 11:07] VITALS: BMI 27.4
--- NOTE | 2019-07-14 12:47 | HP ---
"COWS - Scale Resting Pulse: 0= [place] 80 or Below Sweatin= No chills or Flushing Restless Observation: 3= Extraneous Movement Pupil Size: 0= Normal to Room Light Bone or Joint Aches: 2= Severe Diffuse Aches Runny Nose/ Eye Tearin= Nasal Congestion GI Upset > 30mins: 2= Nausea/Diarrhea Tremor Observation: 2= Slight Tremor Visible Yawning Observation: 1= 1-2x During Session Anxiety or Irritability: 2=Irritable/Anxious Goose Flesh Skin: 0=Smooth Skin COWS Score: 13 CIWA Score Nausea/Vomitin Muscle Tremors: 3 Anxiety: 4-Mod. Anxious/Guarded Agitation: 4-Moderately Restless Paroxysmal Sweats: 1-Minimal Palms Moist Orientation: 1-Uncertain about Date Tacttile Disturbances: 0-None Auditory Disturbances: 0-None Visual Disturbances: 0-None Headache: 2-Mild CIWA-Ar Total Score: 17 - Admission Criteria OASAS Guidelines: Admission for Medically Managed Detox: Requires at least one of the followin. CIWA greater than 12 2. Seizures within the past 24 hours 3. Delirium tremens within the past 24 hours 4. Hallucinations within the past 24 hours 5. Acute intervention needed for co occurring medical disorder 6. Acute intervention needed for co occurring psychiatric disorder 7. Severe withdrawal that cannot be handled at a lower level of care (continued vomiting, continued diarrhea, abnormal vital signs) requiring intravenous medication and/or fluids 8. Patient presents the following: CIWA greater than 12 Admission Criteria Met: Admission criteria met Admitting History and Physical - Admission History Source: Patient, Medical Record Limitations to Obtaining History: No Limitations - Smoking History Smoking history: Current every day smoker Have you smoked in the past 12 months: Yes Aproximately how many cigarettes per day: 3 - Alcohol/Substance Use Hx Alcohol Use: Yes History of Substance Use: reports: Cocaine, Heroin - Social History Usual Living Arrangement: Yes: Alone, Other (homeless - lives with various family members not in halfway) ADL: Family Assistance Admission ROS [facility] Allergies/Adverse Reactions: Allergies Allergy/AdvReac Type Severity Reaction Status Date / Time Penicillins Allergy Severe RASH Verified 07/14/19 10:53 History of Present Illness: 39 yo gentleman here for detox from alcohol, heroin - also using cocaine. History of overdose and black out but no seizures. Last time in detox here 02/21 - states he did ok for a few weeks then relapsed. He is homeless but lives with friends and families, not on disability. Restless. States he has not been in an emergency room lately. [facility] Search Terms: sita lemons, 1980 Search Date: 07/14/2019 12:54:46 PM The Drug Utilization Report below displays all of the controlled substance prescriptions, if any, that your patient has filled in the last twelve months. The information displayed on this report is compiled from pharmacy submissions to the Department, and accurately reflects the information as submitted by the pharmacies. This report was requested by: Jennifer Gillespie | Reference #: [id number] There are no results for the search terms that you entered. Exam Limitations: No Limitations - Ebola screening Have you traveled outside of the country in the last 21 days: No Have you had contact with anyone from an Ebola affected area: No Have you been sick,other than usual withdrawal symptoms: No Do you have a fever: No - Review of Systems Constitutional: Loss of Appetite, Malaise, Weakness EENT: reports: Blurred Vision Respiratory: reports: No Symptoms reported Cardiac: reports: No Symptoms Reported GI: reports: Nausea, Poor Fluid Intake, Abdominal cramping : reports: Frequency Musculoskeletal: reports: Back Pain Integumentary: reports: Other (right forearm ventral aspect with erythema) Neuro: reports: Headache, Tremors Endocrine: reports: No Symptoms Reported Hematology: reports: No Symptoms Reported Psychiatric: reports: Judgement Intact, Mood/Affect Appropiate, Anxious Other Systems: Reviewed and Negative Patient History - Patient Medical History Hx Anemia: No Hx Asthma: No Hx Chronic Obstructive Pulmonary Disease (COPD): No Hx Cancer: No Hx Cardiac Disorders: No Hx Congestive Heart Failure: No Hx Hypertension: No Hx Hypercholesterolemia: No Hx Pacemaker: No HX Cerebrovascular Accident: No Hx Seizures: No Hx Dementia: No Hx Diabetes: No Hx Gastrointestinal Disorders: No Hx Liver Disease: No Hx Genitourinary Disorders: No Hx Sexually Transmitted Disorders: No Hx Renal Disease (ESRD): No Hx Thyroid Disease: No Hx Human Immunodeficiency Virus (HIV): No (03/02/18 negative) Hx Hepatitis C: Yes (treated 3 years ago) Hx Depression: Yes (hospitalized once 'a while ago') Hx Suicide Attempt: No (denies) Hx Bipolar Disorder: Yes Hx Schizophrenia: No - Patient Surgical History Past Surgical History: No Hx Neurologic Surgery: No Hx Cataract Extraction: No Hx Cardiac Surgery: No Hx Lung Surgery: No Hx Breast Surgery: No Hx Breast Biopsy: No Hx Abdominal Surgery: Yes (right inguinal hernia repair at age 29 years) Hx Appendectomy: No Hx Cholecystectomy: No Hx Genitourinary Surgery: No Hx Section: No Hx Orthopedic Surgery: No Anesthesia Reaction: No - PPD History Previous Implant?: Yes Implanted On Prior [facility] Admission?: Yes Date: 02/21/19 (TB quantiferon negative) Results: 0 mm PPD to be Administered?: No - Reproductive History Patient is a Female of Child Bearing Age (11 -55 yrs old): No (male) - Smoking Cessation Smoking history: Current every day smoker Have you smoked in the past 12 months: Yes Aproximately how many cigarettes per day: 3 Hx Chewing Tobacco Use: No Initiated information on smoking cessation: Yes 'Breaking Loose' booklet given: 07/14/19 (give on floor) - Substance & Tx. History Hx Alcohol Use: Yes Hx Substance Use: Yes Substance Use Type: Alcohol, Cocaine, Heroin Hx Substance Use Treatment: Yes (detox, rehab) - Substances abused Heroin Substance route: Injection Frequency: Daily Amount used: 6 bags Age of first use: 25 Date of last use: 07/13/19 Alcohol Substance route: Oral Frequency: Daily Amount used: 2 bottles of wine Age of first use: 26 Date of last use: 07/12/19 Cocaine Substance route: Injection Frequency: Daily Amount used: $200/day Age of first use: 25 Date of last use: 07/13/19 Admission Physical Exam S - Vital Signs Vital Signs: Vital Signs - 24 hr 07/14/19 11:02 Temperature 97.2 F L Pulse Rate 74 Respiratory 16 Rate Blood Pressure 131/94 - Physical General Appearance: Yes: Nourished, Appropriately Dressed, Moderate Distress, Tremorous, Anxious HEENTM: Yes: EOMI, Hearing grossly Normal, Normocephalic, Normal Voice, Pharynx Normal Respiratory: Yes: Normal Breath Sounds, No Respiratory Distress Neck: Yes: No masses,lesions,Nodules Breast: Yes: Breast Exam Deferred Cardiology: Yes: Regular Rhythm, Regular Rate Abdominal: Yes: Soft Genitourinary: Yes: Frequency Back: Yes: Normal Inspection Musculoskeletal: Yes: full range of Motion, Gait Steady Extremities: Yes: Normal Inspection, Normal Range of Motion, Tremors 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: Yes: Alert, Motor Strength 5/5, Normal Mood/Affect, Normal Response Integumentary: Yes: Normal Color, Warm, Track Downing, Other (ventral aspect of left forearm with erythema and warmth - cellulitis; scabbing of both ventral forearms (secondary to past abscess) and track downing both arms) Lymphatic: Yes: Within Normal Limits - Diagnostic (1) Alcohol dependence with uncomplicated withdrawal Current Visit: Yes Status: Resolved (2) Opioid dependence with withdrawal Current Visit: Yes Status: Chronic (3) Cocaine dependence Current Visit: Yes Status: Chronic Qualifiers: Substance use status: uncomplicated Qualified Code(s): F14.20 - Cocaine dependence, uncomplicated (4) Cellulitis of forearm, right Current Visit: Yes Status: Acute Comment: will order bactrim (5) Nicotine dependence Current Visit: Yes Status: Chronic Qualifiers: Nicotine product type: cigarettes Substance use status: in withdrawal Qualified Code(s): F17.213 - Nicotine dependence, cigarettes, with withdrawal Cleared for Admission [facility] - Detox or Rehab [facility] Level of Care: Medically Managed Detox Regimen/Protocol: Methadone/Librium Breathalyzer - Breathalyzer Breathalyzer: 0 Urine Drug Screen - Test Device Lot number: [id number] Expiration date: 11/03/20 - Control Is test valid?: Yes - Results Drug screen NEGATIVE: No Urine drug screen results: MTD-Methadone, BZO-Benzodiazepines Inpatient Rehab Admission - Rehab Decision to Admit Inpatient rehab admission?: No"
[2019-07-14] MEDS ORDERED: IBUPROFEN 400 MG TABLET (FP) PO PRN (13:06)
[2019-07-14] MEDS ORDERED: chlordiazePOXIDE HCL 10 MG CAPSULE PO PRN (13:06)
[2019-07-14] MEDS ORDERED: METHOCARBAMOL 500 MG TABLET PO PRN (13:06)
[2019-07-14] MEDS ORDERED: MENTHOL/PHENOL 1 EACH UD MM PRN (13:06)
[2019-07-14] MEDS ORDERED: MAG HYDROX/AL HYDROX/SIMETH 30 ML UNIT-DOSE CUP PO PRN (13:06)
[2019-07-14] MEDS ORDERED: ACETAMINOPHEN 325 MG TABLET (FP) PO PRN ×2 (13:06)
[2019-07-14] MEDS ORDERED: MAGNESIUM HYDROX 2400MG/30ML ORAL SUSPENSION 30 ML CUP PO PRN (13:06)
[2019-07-14] MEDS ORDERED: MAGNESIUM CITRATE 300 ML BOTTLE PO PRN (13:06)
[2019-07-14] MEDS ORDERED: cloNIDine HCL 0.1 MG TABLET PO PRN (13:06)
[2019-07-14] MEDS ORDERED: BISMUTH SUBSALICYLATE 524 MG/30 ML UD PO PRN (13:06)
[2019-07-14] MEDS ORDERED: METHADONE HCL 10 MG TABLET (FOR DETOX USE ONLY) PO ONE (13:06)
[2019-07-14] MEDS ORDERED: CEPHALEXIN MONOHYDRATE 500 MG CAPSULE (UD) PO SCH (13:15)
[2019-07-14] MEDS ORDERED: chlordiazePOXIDE HCL 25 MG CAPSULE PO ONE (13:30)
[2019-07-14] MEDS: SULFAMETHOXAZOLE/TRIMETHOPRIM 800MG/160MG D.S. TABLET PO SCH ×2 (14:17→22:34)
[2019-07-14] MEDS: NICOTINE 14 MG/24 HOURS TOPICAL PATCH TD SCH (14:19)
[2019-07-14] MEDS ORDERED: QUEtiapine FUMARATE 50 MG TABLET PO PRN (22:00)
[2019-07-14] MEDS ORDERED: MELATONIN 5 MG TABLETS PO PRN (22:00)
[2019-07-14] MEDS: THIAMINE HCL 100 MG TABLET (FP) PO SCH (22:33)
[2019-07-14] MEDS: chlordiazePOXIDE HCL 25 MG CAPSULE PO SCH (22:34)
[2019-07-15] MEDS: chlordiazePOXIDE HCL 25 MG CAPSULE PO SCH ×3 (06:53→22:22)
[2019-07-15] MEDS ORDERED: METHADONE HCL 10 MG TABLET (FOR DETOX USE ONLY) ONE (09:35)
[2019-07-15] MEDS ORDERED: METHADONE HCL 5 MG TABLET (FOR DETOX USE ONLY) ONE (09:35)
--- NOTE | 2019-07-15 09:38 | CONSULT ---
[facility] Psychiatric Consult - Data Date of interview: 07/15/19 Admission source: Self-referred Identifying data: Mr Ferrara is a 39 years old single male, unemployed, homeless seeking detox treatment for alcohol, opioid and cocaine Substance Abuse History: Reports history of alcohol, heroin and cocaine use. Refer to addiction counselor's note for further information Medical History: Significant for history of treatment for hepatitis C and right inguinal hernia repair at age 29. Smokes 3 cigarettes daily Psychiatric History: Patient is known for previous admissions to this facility. Historical narative is not quite consistent compared with previous information provided on previous admissions to this facility. He reports that his first psychiatric contact occured at age 16 after his mother . He was admitted to [facility] for over a week for depression. He claims that he was not treated with medication. However, during an admission to this facility late December 2016, he told Dr Ward that at age 16, after his mother , he was admitted to [facility] for auditory hallucinations and depression for a month, was diagnosed with Bipolar Disorder and he was treated with Depakote, Risperdal, Seroquel and Remeron. He said that he stopped taking medications because he started using. He told commercial lines underwriter about a subsequent admission to [facility] approximately 7 years ago for depression. Claims that he was treated with Depakote and Seroquel. Reports a [facility] admission to [facility] a few years ago and he was prescribed while there. Denies ever received outpatient psychiatric treatment. Reports his most recent psychiatric treatment was during an admission to this facility a few years ago. In fact, during an admission to this facility in March 2018, LETY Abarca put him on Seroquel 50 mg/bid after external medication histrory revealed scripts for Seroquel 200 mg/bid and Trileptal 600 mg/day. Denies previous suicidal attempt. At present, denies experiencing psychotic, manic or depressive symptoms, S/H ideations. However, reports sleeping poorly and requests to take Seroquel Physical/Sexual Abuse/Trauma History: Denies Mental Status Exam - Mental Status Exam Alert and Oriented to: Time, Place, Person Cognitive Function: Fair Patient Appearance: Disheveled Mood: Hopeful, Euthymic Patient Behavior: Cooperative Speech Pattern: Clear Thought Process: Intact, Goal Oriented Hallucinations: Denies Suicidal Ideation: Denies Homicidal Ideation: Denies Insight/Judgement: Poor Sleep: Poorly Appetite: Good Muscle strength/Tone: Normal Gait/Station: Normal Psychiatric Findings - Problem List ([place] 1, 2,3) (1) Bipolar disorder Current Visit: No Status: Chronic (2) Substance-induced sleep disorder Current Visit: Yes Status: Acute (3) Alcohol dependence with uncomplicated withdrawal Current Visit: Yes Status: Acute (4) Opioid dependence with withdrawal Current Visit: Yes Status: Acute (5) Cocaine dependence Current Visit: Yes Status: Acute Qualifiers: Substance use status: uncomplicated Qualified Code(s): F14.20 - Cocaine dependence, uncomplicated (6) Nicotine dependence Current Visit: Yes Status: Chronic Qualifiers: Nicotine product type: cigarettes Substance use status: in withdrawal Qualified Code(s): F17.213 - Nicotine dependence, cigarettes, with withdrawal (7) Hepatitis C Current Visit: Yes Status: Resolved - Initial Treatment Plan Initial Treatment Plan: 1) Start Seroquel 100 mg po HS. 2) Continue inpatient detoxification
[2019-07-15] MEDS ORDERED: METHADONE (DETOX) 20 MG, METHADONE (DETOX) 5 MG PO ONE (10:00)
[2019-07-15] MEDS: NICOTINE 14 MG/24 HOURS TOPICAL PATCH TD SCH (10:33)
[2019-07-15] MEDS: PRENATAL VITAMINS W/ FOLIC ACID TABLET (FP) PO SCH (10:33)
[2019-07-15] MEDS: SULFAMETHOXAZOLE/TRIMETHOPRIM 800MG/160MG D.S. TABLET PO SCH ×3 (10:40→22:22)
--- NOTE | 2019-07-15 13:42 | PN ---
[facility] CIWA - CIWA Score Nausea/Vomitin-Mild Nausea/No Vomiting Muscle Tremors: 2 Anxiety: 3 Agitation: 2 Paroxysmal Sweats: 3 Orientation: 0-Oriented Tacttile Disturbances: 1-Very Mild Itch/Numbness Auditory Disturbances: 0-None Visual Disturbances: 0-None Headache: 0-None Present CIWA-Ar Total Score: 12 S COWS - Scale Resting Pulse: 2= [place] 101-120 Sweatin= Chills/Flushing Restless Observation: 0= Sits Still Pupil Size: 0= Normal to Room Light Bone or Joint Aches: 2= Severe Diffuse Aches Runny Nose/ Eye Tearin= None GI Upset > 30mins: 2= Nausea/Diarrhea Tremor Observation of Outstretched Hands: 2= Slight Tremor Visible Yawning Observation: 0= None Anxiety or Irritability: 2=Irritable/Anxious Goose Flesh Skin: 0=Smooth Skin COWS Score: 11 [facility] Progress Note (SOAP) Subjective: Anxious, tremor, restless Objective: 07/15/19 13:40 Last Vital Signs Temp Pulse Resp BP Pulse Ox 99.5 F 101 H 18 124/51 L 07/15/19 12:39 07/15/19 12:39 07/15/19 12:39 07/15/19 12:39 No admission lab results available for review (patient refused) Assessment: 07/15/19 13:42 Withdrawal sxs Plan: Continue detox Encouraged PO water intake Admission labs reordered in AM: CBC, CMP, RPR, UA
[2019-07-15] MEDS ORDERED: QUEtiapine FUMARATE 100 MG TABLET (FP) PO SCH (22:00)
[2019-07-15] MEDS: THIAMINE HCL 100 MG TABLET (FP) PO SCH (22:22)
[2019-07-16] MEDS: chlordiazePOXIDE 5 MG CAPSULE PO SCH ×2 (06:58→14:10)
[2019-07-16] MEDS ORDERED: METHADONE HCL 10 MG TABLET (FOR DETOX USE ONLY) PO ONE (10:00)
[2019-07-16 10:13] LABS: ALBUMIN 3.1 g/dl (3.4-5.0); BILIRUBIN,TOTAL 0.2 mg/dL (0.2-1); BLOOD UREA NITROGEN 17.9 mg/dL (7-18)
[2019-07-16 10:19] LABS: BASO % 0.4 % (0-2.0); EOS % 3.8 % (0-4.5); HEMATOCRIT 36.8 % (35.4-49); HEMOGLOBIN 12.5 GM/dL (11.7-16.9); LYMPH % 38.5 % (8-40); MCH 28.5 pg (25.7-33.7); MCHC 33.8 g/dl (32.0-35.9); MEAN CELL VOLUME 84.2 fl (80-96); MEAN PLT VOLUME 8.5 fl (7.5-11.1); MONO % 6.9 % (3.8-10.2); NEUT % 50.4 % (42.8-82.8); PLATELET COUNT 190 K/MM3 (134-434); RBC 4.37 M/mm3 (4.00-5.60); RDW 15.4 % (11.9-15.9); WHITE BLOOD COUNT 7.4 K/mm3 (4.0-10.0)
[2019-07-16] MEDS: SULFAMETHOXAZOLE/TRIMETHOPRIM 800MG/160MG D.S. TABLET PO SCH (10:30)
--- NOTE | 2019-07-16 11:09 | PN ---
[facility] CIWA - CIWA Score Nausea/Vomitin-Mild Nausea/No Vomiting Muscle Tremors: 2 Anxiety: 2 Agitation: 2 Paroxysmal Sweats: No Perspiration Orientation: 0-Oriented Tacttile Disturbances: 1-Very Mild Itch/Numbness Auditory Disturbances: 0-None Visual Disturbances: 0-None Headache: 2-Mild CIWA-Ar Total Score: 10 [facility] COWS - Scale Resting Pulse: 2= [place] 101-120 Sweatin= No chills or Flushing Restless Observation: 1= Difficult to Sit Still Pupil Size: 1= Pupils >than Normal Bone or Joint Aches: 1= Mild Discomfort Runny Nose/ Eye Tearin= Nasal Congestion GI Upset > 30mins: 2= Nausea/Diarrhea Tremor Observation of Outstretched Hands: 1= Tremor [place], Not Seen Yawning Observation: 1= 1-2x During Session Anxiety or Irritability: 2=Irritable/Anxious Goose Flesh Skin: 0=Smooth Skin COWS Score: 12 S Progress Note (SOAP) Subjective: alert,irritable,anxious,interrupted sleep,pain in the body and back Objective: 07/16/19 11:07 Vital Signs Temperature 97.5 F L 07/16/19 09:24 Pulse Rate 103 H 07/16/19 09:24 Respiratory Rate 18 07/16/19 09:24 Blood Pressure 124/72 07/16/19 09:24 O2 Sat by Pulse Oximetry (%) Laboratory Last Values WBC 7.4 K/mm3 (4.0-10.0) 07/16/19 08:00 RBC 4.37 M/mm3 (4.00-5.60) 07/16/19 08:00 Hgb 12.5 GM/dL (11.7-16.9) 07/16/19 08:00 Hct 36.8 % (35.4-49) D 07/16/19 08:00 MCV 84.2 fl (80-96) 07/16/19 08:00 MCH 28.5 pg (25.7-33.7) 07/16/19 08:00 MCHC 33.8 g/dl (32.0-35.9) 07/16/19 08:00 RDW 15.4 % (11.9-15.9) D 07/16/19 08:00 Plt Count 190 K/MM3 (134-434) 07/16/19 08:00 MPV 8.5 fl (7.5-11.1) D 07/16/19 08:00 Absolute Neuts (auto) 3.7 K/mm3 (1.5-8.0) 07/16/19 08:00 Neutrophils % 50.4 % (42.8-82.8) 07/16/19 08:00 Lymphocytes % 38.5 % (8-40) 07/16/19 08:00 Monocytes % 6.9 % (3.8-10.2) 07/16/19 08:00 Eosinophils % 3.8 % (0-4.5) 07/16/19 08:00 Basophils % 0.4 % (0-2.0) 07/16/19 08:00 Nucleated RBC % 0 % (0-0) 07/16/19 08:00 Sodium 138 mmol/L (136-145) 07/16/19 08:00 Potassium 4.0 mmol/L (3.5-5.1) 07/16/19 08:00 Chloride 106 mmol/L (98-107) 07/16/19 08:00 Carbon Dioxide 26 mmol/L (21-32) 07/16/19 08:00 Anion Gap 6 MMOL/L (8-16) L 07/16/19 08:00 BUN 17.9 mg/dL (7-18) 07/16/19 08:00 Creatinine 1.0 mg/dL (0.55-1.3) 07/16/19 08:00 Est GFR (CKD-EPI)AfAm 110.94 07/16/19 08:00 Est GFR (CKD-EPI)NonAf 95.72 07/16/19 08:00 Random Glucose 97 mg/dL (74-106) 07/16/19 08:00 Calcium 8.0 mg/dL (8.5-10.1) L 07/16/19 08:00 Total Bilirubin 0.2 mg/dL (0.2-1) 07/16/19 08:00 AST 17 U/L (15-37) 07/16/19 08:00 ALT 20 U/L (13-61) 07/16/19 08:00 Alkaline Phosphatase 116 U/L (45-117) 07/16/19 08:00 Total Protein 6.0 g/dl (6.4-8.2) L 07/16/19 08:00 Albumin 3.1 g/dl (3.4-5.0) L 07/16/19 08:00 Assessment: 07/16/19 11:08 withdrawal symptom Plan: continue detox methadone and librium regimen
[2019-07-16] MEDS: PRENATAL VITAMINS W/ FOLIC ACID TABLET (FP) PO SCH (11:11)
[2019-07-16] MEDS: NICOTINE 14 MG/24 HOURS TOPICAL PATCH TD SCH (11:12)
[2019-07-16] MEDS ORDERED: BACITRACIN 15 GM TUBE TOPICAL OINTMENT TP SCH (13:30)
[2019-07-16 13:39] VITALS: BP 129/69; PULSE 109; TEMP 98.8
--- NOTE | 2019-07-16 16:58 | PN ---
S Progress Note Note: Alert and oriented. States has to leave. States feeling better and has to get home. Discussed non-completion of full detox but patient has completed over 48 hrs of treatment. COWS: Anxiety = 2; Restless =1 CIWA: Anxiety = 2; Agitation = 3. Encouraged continued smoking cessation. Declined nicotine gum. Discussed overdose risks and prevention. Encouraged to attend an out-patient program or community support group such as AA or [facility]. States will work on maintaining abstinence when discharged. Patient declined to receive a Narcan kit. Patient left unit ambulatory in [facility].
--- NOTE | 2019-07-16 17:28 | DS ---
[facility] Detox Discharge Summary Admission Date: 07/14/19 Discharge Date: 07/16/19 (Early discharge) - History Present History: Alcohol Dependence, Opioid Dependence Additional Comments: Hx heroin and alcohol use disorder w/ prior attempts at detox. Pertinent Past History: Patient also using cocaine. History of overdose and black out but no seizures. - Physical Exam Results Vital Signs: Vital Signs Temperature 98.8 F 07/16/19 12:28 Pulse Rate 109 H 07/16/19 12:28 Respiratory Rate 20 07/16/19 12:28 Blood Pressure 129/69 07/16/19 12:28 O2 Sat by Pulse Oximetry (%) Pertinent Admission Physical Exam Findings: Patient admitted to detox w/ alcohol and opioid withdrawal symptoms. Laboratory Last Values WBC 7.4 K/mm3 (4.0-10.0) 07/16/19 08:00 RBC 4.37 M/mm3 (4.00-5.60) 07/16/19 08:00 Hgb 12.5 GM/dL (11.7-16.9) 07/16/19 08:00 Hct 36.8 % (35.4-49) D 07/16/19 08:00 MCV 84.2 fl (80-96) 07/16/19 08:00 MCH 28.5 pg (25.7-33.7) 07/16/19 08:00 MCHC 33.8 g/dl (32.0-35.9) 07/16/19 08:00 RDW 15.4 % (11.9-15.9) D 07/16/19 08:00 Plt Count 190 K/MM3 (134-434) 07/16/19 08:00 MPV 8.5 fl (7.5-11.1) D 07/16/19 08:00 Absolute Neuts (auto) 3.7 K/mm3 (1.5-8.0) 07/16/19 08:00 Neutrophils % 50.4 % (42.8-82.8) 07/16/19 08:00 Lymphocytes % 38.5 % (8-40) 07/16/19 08:00 Monocytes % 6.9 % (3.8-10.2) 07/16/19 08:00 Eosinophils % 3.8 % (0-4.5) 07/16/19 08:00 Basophils % 0.4 % (0-2.0) 07/16/19 08:00 Nucleated RBC % 0 % (0-0) 07/16/19 08:00 Sodium 138 mmol/L (136-145) 07/16/19 08:00 Potassium 4.0 mmol/L (3.5-5.1) 07/16/19 08:00 Chloride 106 mmol/L (98-107) 07/16/19 08:00 Carbon Dioxide 26 mmol/L (21-32) 07/16/19 08:00 Anion Gap 6 MMOL/L (8-16) L 07/16/19 08:00 BUN 17.9 mg/dL (7-18) 07/16/19 08:00 Creatinine 1.0 mg/dL (0.55-1.3) 07/16/19 08:00 Est GFR (CKD-EPI)AfAm 110.94 07/16/19 08:00 Est GFR (CKD-EPI)NonAf 95.72 07/16/19 08:00 Random Glucose 97 mg/dL (74-106) 07/16/19 08:00 Calcium 8.0 mg/dL (8.5-10.1) L 07/16/19 08:00 Total Bilirubin 0.2 mg/dL (0.2-1) 07/16/19 08:00 AST 17 U/L (15-37) 07/16/19 08:00 ALT 20 U/L (13-61) 07/16/19 08:00 Alkaline Phosphatase 116 U/L (45-117) 07/16/19 08:00 Total Protein 6.0 g/dl (6.4-8.2) L 07/16/19 08:00 Albumin 3.1 g/dl (3.4-5.0) L 07/16/19 08:00 RPR Titer Nonreactive (NONREACTIVE) 07/16/19 08:00 Labs reviewed. - Treatment Hospital Course: Discharged Condition Good (Alert and oriented. States has to leave. States feeling better and has to get home. Discussed non-completion of full detox but patient has completed over 48 hrs of treatment. COWS: Anxiety = 2; Restless =1 CIWA: Anxiety = 2; Agitation = 3. Encouraged continued smoking cessation. Declined nicotine gum. Discussed overdose risks and prevention. Encouraged to attend an out-patient program or community support group such as AA or NA. States will work on maintaining abstinence when discharged. Patient declined to receive a Narcan kit. Patient left unit ambulatory in [facility].) - Medication Discharge Medications: Ambulatory Orders NK [No Known Home Medication] 07/14/19 - Diagnosis (1) Alcohol dependence with uncomplicated withdrawal Current Visit: Yes Status: Acute (2) Cocaine dependence Current Visit: Yes Status: Chronic Qualifiers: Substance use status: uncomplicated Qualified Code(s): F14.20 - Cocaine dependence, uncomplicated (3) Opioid dependence with withdrawal Current Visit: Yes Status: Acute (4) Nicotine dependence Current Visit: Yes Status: Chronic Qualifiers: Nicotine product type: cigarettes Substance use status: in withdrawal Qualified Code(s): F17.213 - Nicotine dependence, cigarettes, with withdrawal - AMA Did Patient Leave Against Medical Advice: No
[2019-07-17] MEDS ORDERED: chlordiazePOXIDE HCL 10 MG CAPSULE PO PRN
[2019-07-17] MEDS ORDERED: chlordiazePOXIDE HCL 10 MG CAPSULE PO SCH (05:00)
[2019-07-17] MEDS ORDERED: METHADONE (DETOX) 10 MG, METHADONE (DETOX) 5 MG PO ONE (10:00)
[2019-07-18] MEDS ORDERED: chlordiazePOXIDE HCL 10 MG CAPSULE PO ONE (05:00)
[2019-07-18] MEDS ORDERED: METHADONE HCL 10 MG TABLET (FOR DETOX USE ONLY) PO ONE (10:00)
[2019-07-19] MEDS ORDERED: METHADONE HCL 5 MG TABLET (FOR DETOX USE ONLY) PO ONE (06:00)
== END 2019-07-16 16:59 | disposition home or self-care (01) | DRG 773 ==
LOC: YASAS 10:06 → Y6N 13:26
PROVIDERS: ADMIT Allergy & Immunology; ATTEND Allergy & Immunology
PROC: HZ2ZZZZ Detoxification Services for Substance Abuse Treatment (ICD-10-PCS; principal; 2019-07-14)
DX: F11.23 Opioid dependence with withdrawal (principal); F10.230 Alcohol dependence with withdrawal, uncomplicated; F14.20 Cocaine dependence, uncomplicated; F17.213 Nicotine dependence, cigarettes, with withdrawal; F31.9 Bipolar disorder, unspecified; F19.282 Other psychoactive substance dependence with psychoactive substance-induced sleep disorder; L03.113 Cellulitis of right upper limb; Z88.0 Allergy status to penicillin
CPT/HCPCS: 36415; 80053; 85025; 86593